=== PATIENT | male | born 1935 | race Caucasian/White ===

== ENCOUNTER → 2019-02-27 13:34 | Outpatient (CLI) | payer MEDICARE, SELFPAY ==
--- NOTE | 2019-02-09 02:34 | HP_ITS ---
Intake Vital Signs 02/09/19 Body Mass Index (BMI) 28.6 02/09/19 Height 6 ft 1 in 02/09/19 Weight: 219 lb 02/09/19 Body Mass Index (BMI) 28.8 02/09/19 Blood Pressure 130/76 H 02/09/19 Blood Pressure Location Rt brachial 02/09/19 Blood Pressure Position Sitting 02/09/19 Respiratory Rate 18 02/09/19 Pulse Rate 73 02/09/19 Pulse Source Monitor 02/09/19 Temperature 97.9 F 02/09/19 Temperature Source Oral 02/09/19 Pulse Ox 96 02/09/19 Oxygen Delivery Method room air Intake Visit Reasons: Gallbladder/EJECTION FRACT. LESS THEN 35% Chief Complaint: abdominal pain Radiator Core Tester Required: No Is patient in pain?: No Allergies chlorpheniramine [From Scot-Tussin DM] Allergy (Mild, Verified 02/09/19 13:41) GI upset dextromethorphan [From Scot-Tussin DM] Allergy (Mild, Verified 02/09/19 13:41) GI upset finasteride [From Proscar] Adverse Reaction (Mild, Verified 02/09/19 13:41) impotence aspirin Adverse Reaction (Verified 03/13/13 14:00) Other tamsulosin HCl [From Flomax] Adverse Reaction (Verified 03/13/13 14:00) Other Medications Alfuzosin HCl [Uroxatral] 10 mg PO BID 03/13/13 [History Confirmed 02/09/19] Omeprazole [Prilosec] 20 mg PO DAILY 03/13/13 [History Confirmed 02/09/19] Polyethylene Glycol 3350 [Miralax] 17 gm PO DAILY 03/13/13 [History Confirmed 02/09/19] Potassium Chloride 8 meq PO DAILY 03/13/13 [History Confirmed 02/09/19] Selenium Sulfide/Menthol [Selsun Blue 1% Shampoo] 118 ml TP PRN PRN 03/13/13 [History Confirmed 02/09/19] Triamterene 37.5MG/Hctz 25MG [Dyazide (G)] 1 cap PO DAILY 03/13/13 [History Confirmed 02/09/19] atorvastatin 10 mg tablet 20 mg PO DAILY tab 02/09/19 [History Confirmed 02/09/19] brimonidine 0.15 % eye drops 1 drp OPHTHALMIC BID ml 02/09/19 [History Confirmed 02/09/19] fluticasone propionate 50 mcg/actuation nasal spray,suspension 2 spray INTRANASAL DAILY 02/09/19 [History Confirmed 02/09/19] glucosamine sulfate 500 mg capsule 500 mg PO BID 02/09/19 [History Confirmed 02/09/19] latanoprost 0.005 % eye drops 1 drp OPHTHALMIC BID ml 02/09/19 [History Confirmed 02/09/19] magnesium 400 mg (as magnesium oxide) capsule 400 mg PO DAILY 02/09/19 [History Confirmed 02/09/19] meclizine 25 mg chewable tablet 25 mg PO TID PRN 02/09/19 [History Confirmed 02/09/19] netarsudil 0.02 % eye drops 1 drp OPHTHALMIC QPM 02/09/19 [History Confirmed 02/09/19] [facility] Medical History (Updated 02/09/19 @ 14:31 by Wale Chandra MD) Biliary dyskinesia (Acute) Abdominal pain (Acute) BPH (benign prostatic hyperplasia) (Acute) Biliary dyskinesia (Acute) Constipation (Acute) Elevated PSA (Acute) Erectile dysfunction (Acute) GERD (gastroesophageal reflux disease) (Acute) Glaucoma (Acute) History of cataract (Acute) Hyperlipidemia (Acute) Thyroid nodule (Acute) history basal cell, squamous cell of the skin (Acute) Hypertension (Chronic) Surgical History (Updated 02/09/19 @ 13:37 by María Olivo) History of bilateral cataract extraction (Acute) history of basal cell and squamous cell removals (Acute) history shunt placement left eye (Acute) Family History (Updated 02/09/19 @ 13:38 by María Olivo) Mother Hypertension Thyroid disorder Brother Hypertension Cancer skin cancer Sister Hypertension Cancer skin cancer Social History (Updated 02/09/19 @ 14:34 by Wale Chandra MD) Smoking Status: Never smoker alcohol intake: current alcohol intake frequency: a few times a month substance use type: does not use HPI HPI HPI: NONA RAYMOND is a 83 M who presents to the office today for HPI HPI Surgical H&P: Yes HPI: NONA RAYMOND is a 83 M who presents to the office today for intermittent episodes of right upper quadrant pain. The vast majority of these are postprandially. A pastrami sandwich physically caused a bad event. This is been ongoing for about 3 months. He denies fever or chills or sweats. On October 16, 2018 he had a right upper quadrant ultrasound. Biliary system was normal. Common bile duct 3 mm. No gallstones. Possibly some mild gallbladder wall sludge identified. No pericholecystic fluid. More recently on January 29, 2019 a hepatobiliary scan showed prompt filling. Ejection fraction was 31% felt to be abnormal. The patient did not have discomfort during the exam however several hours later he felt flulike symptoms and over the next couple days felt poorly. Dr. Fredrick Garcia for an unrelated set of Circumstances on April 28, 2018 performed a upper and lower endoscopy. The esophagus stomach and duodenum are all felt to be normal at that setting. The patient is on chronic omeprazole therapy at 20 mg daily. 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 Random right colonic biopsies showed colonic mucosa with no specific abnormality. That was performed because of a change in bowel habits He denies bright red blood per rectum or melena. The abdominal pain sometimes in the right sometimes right subcostal location left mid abdomen. He feels that most the time it is a postprandial event. No nausea or vomiting. No fever or chills or sweats. No unexpected weight loss The patient is referred for surgical consultation by Dr. Ragland and a written copy of my surgical consult recommendations will return to him ROS General General: No weight change, appetite, fatigue, colon cancer, breast cancer or weakness HEENT HEENT: Yes eye surgery and swollen glands; no difficulty swallowing, eye injury or hoarseness Endo Endocrine: Yes thyroid disease; no diabetes mellitus, thyroid cancer, Hair loss, heat intolerance or cold intolerance Skin Skin: No rash or changing moles Breast Breast: No left breast lump, right breast lump, nipple discharge, breast pain, abnormal mammogram, abnormal US or breast enlargement Musc Musculoskeletal: Yes arthritis; no back problems, rheumatoid arthritis, gout or joint pain Cardio Cardiovascular: Yes high blood pressure; no murmur, pacemaker, heart disease, atrial fibrillation, heart attack, heart stent, palpitations, shortness of breat with exertion or chest pain Psych Psychiatric: No depression, anxiety or hearing voices Resp Respiratory: No shortness of breath, No sleep apnea, No cough, No COPD, No asthma, No emphysema, No wheezing Gastro Gastrointestinal: Yes abdominal pain, No nausea or vomiting, No diarrhea, Yes constipation, No blood in stool, Yes acid reflux, No hemorrhoids, No ulcers, Yes gallbladder problem, No black,tarry stools Mervin Hematologic: No blood thinners, No blood disorders, No bleeding, No anemia, No blood clots Neuro Neurologic: No system reviewed and no additional complaints, except as docu, No as per HPI, No abnormal walking, No abnormal hearing, No abnormal movements, No abnormal speech, No behavioral changes, No burning sensations, No confusion, No seizure-like activity, No unsteadiness, No dizziness, No localized weakness, No frequent falls, No headache(s), No lack of coordination, No loss of vision, No memory loss, No numbness, No other visual disturbances, No radiating pain, No restless legs, No sensory deficit, No fainting, No tingling, No tremor(s), No weakness, No other Exam Const General: cooperative, healthy appearing, comfortable, no acute distress Nutritional Appearance: average body habitus Orientation: alert, awake, oriented x3 HENMT Head: normal to inspection Neck Neck: normal visual inspection Chest Chest palpation & inspection: normal inspection of the chest Breast Palpation: No nipple discharge Resp Effort & Inspection: normal respiratory effort Auscultation: clear to auscultation bilaterally Cardio Rate: regular rate Rhythm: regular rhythm Heart Sounds: no murmurs GI Palpation: soft, no hepatosplenomegaly Auscultation: normal bowel sounds Other: No specific mass no tenderness no guarding Skin General: no rashes or lesions noted Neuro Cognition: normal cognition Extrem General: no calf tenderness bilaterally Psych Affect: normal affect Assessment & Plan Problems 1. Biliary dyskinesia K82.8 Plan 83-year-old gentleman who has postprandial pain mostly in the right midabdomen right upper quadrant but he has diffuse aching pain intermittently in the left mid abdomen as well. He has not had laboratory drawn at the peak of discomfort. He has not had CT imaging. I believe that he may well have biliary dyskinesia or possibly the sludge microsoft windows engineer on the ultrasound really is tiny stones or debris. I have offered him a laparoscopic cholecystectomy with selective cholangiography. He is aware of the technique, benefit, risk of alternatives. However prior to proceeding of that highlighted by these bouts of left mid abdominal pain more than I would think typical of biliary dyskinesia I would like to obtain a abdominal pelvic CT scan. If that is otherwise not remarkable then we will proceed with gallbladder surgical intervention. Obviously if this he demonstrates any acute finding we will address as appropriate. He has had an opportunity to ask and have questions answered. We will schedule and proceed as noted. I very much appreciate the kind opportunity of assisting with surgical care. Cc: Dr. Obie Chandra M.D., F.A.C.S. Orders Orders: Abdomen/Pelvis WITH Contrast Today R10.9 Coding Level of Care Code 58500 Diagnoses Biliary dyskinesia K82.8 02/09/19 1434 <Electronically signed by Wale avitia MD> Date _ Wale Chandra MD
[2019-02-09 13:47] VITALS: BMI 28.6
== END ==
PROVIDERS: PCP Internal Medicine; Visit Provider Surgery
DX: Z00.00 Encounter for general adult medical examination without abnormal findings (principal)

== ENCOUNTER 2020-03-18 12:45 | Outpatient (RCR) | payer MEDICARE, SELFPAY ==
[2019-02-09 13:47] VITALS: BMI 28.6
== END 2020-03-18 23:59 ==
LOC: IMMUN 12:45
PROVIDERS: PCP Internal Medicine; Referring Provider Family Medicine; Visit Provider Family Medicine
DX: Z23 Encounter for immunization (principal)
CPT/HCPCS: 0011A; 0012A; 91301

== ENCOUNTER → 2020-07-29 06:40 | Outpatient (CLI) | payer MEDICARE, SELFPAY ==
[2019-02-09 13:47] VITALS: BMI 28.6
--- NOTE | 2020-07-29 06:44 | CT_ITS ---
STUDY: CT SCAN LOWER EXTREMITY HIP LEFT.[facility] protocol REASON FOR EXAM: Male, 84 years old. UNILATERAL OSTEOARTHRITIS LEFT KNEE RADIATION DOSAGE (If Supplied By Facility): CTDIvol = ( 18.76 ) mGy, DLP = ( 1143.37 ) mGycm. Individualized dose optimization techniques were used for this CT.? TECHNIQUE: Multiple axial tomographic images of the left hip joint, left knee joint and left ankle joint were obtained. Coronal and sagittal reconstruction was obtained as well. COMPARISON: None. FINDINGS: Imaging of the left hip joint demonstrates a moderate amount of joint space narrowing. There is evidence of the acetabular spurs worse along the superior aspect of the acetabulum and posteriorly. There is evidence of a calcification of the labrum. Moderate amount of joint space narrowing involving the medial compartment of the knee joint with some mild degree of degenerative spur formation. Mild degree of patellofemoral arthritis. Moderate degree of joint effusion. Imaging of the ankle was performed. There is evidence of an old avulsion fracture of the medial malleolus. CT/Extremity Lower without Contra IMPRESSION: Moderate degree of osteoarthritis involving the left hip joint with evidence of acetabular spur formation. Moderate degree of joint space narrowing involving the medial compartment of the knee joint and mild degree of osteoarthritis involving the patellofemoral joint. Moderate size joint effusion. Electronically Signed: Adan House MD at 10:58 EDT , Service support ,
== END ==
PROVIDERS: PCP Internal Medicine; Visit Provider Orthopaedic Surgery
DX: M17.12 Unilateral primary osteoarthritis, left knee (principal); M21.162 Varus deformity, not elsewhere classified, left knee
CPT/HCPCS: 73700

== ENCOUNTER 2020-08-15 15:39 | Observation (INO) | payer MEDICARE, SELFPAY ==
[2019-02-09 13:47] VITALS: BMI 28.6
--- NOTE | 2020-08-08 15:47 | EKG12_ITS ---
Test Reason : PRE SURGERY Blood Pressure : / mmHG Vent. Rate : 074 BPM Atrial Rate : 074 BPM P-R Int : 166 ms QRS Dur : 086 ms QT Int : 390 ms P-R-T Axes : 070 042 060 degrees QTc Int : 432 ms Normal sinus rhythm Normal ECG Confirmed by NERY AREVALO, CHARISSE ([id number]), primer expeditor and drier LUAN GALEANA ([id number]) on 08/09/2020 9:00:37 AM Referred By: Jose Zapata Confirmed By:CHARISSE GABRIEL MD
[2020-08-08 17:22] LABS: Hematocrit 41.1 % (40-54); Hemoglobin 13.7 g/dL (13.0-16.5); Mean Corp Hgb Conc 33.3 g/dL (32-36); Mean Corpuscular Hgb 30.2 pg (27.0-32.0); Mean Corpuscular Volume 90.5 fL (80-94); Mean Platelet Vol. 9.9 fl (6.2-12.0); Platelet Count 181 K/mm3 (150-450); RBC Distribution Width CV 12.5 % (11.6-14.6); RBC Distribution Width SD 41.3 fl (35.1-43.9); Red Blood Count 4.54 M/mm3 (4.6-6.2); White Blood Count 4.6 K/mm3 (4.4-11.0)
[2020-08-08 17:37] LABS: Anion Gap 8 (5-15); BUN 18 mg/dL (7-18); BUN/Creat Ratio 23.1 RATIO (10-20); Chloride 105 mmol/L (98-107); Creatinine, Serum 0.78 mg/dL (0.70-1.30); EST Glomerular Filtration Rate 101 mL/min (>60); Est Glom Filt Rate - Afr Amer 123 mL/min (>60); Glucose 76 mg/dL (74-106); Potassium 3.4 mmol/L (3.5-5.1); Sodium Level 142 mmol/L (136-145)
[2020-08-08 17:46] LABS: Hemoglobin A1c 5.3 % (3.8-5.6)
[2020-08-08 17:50] LABS: Thyroid Stim Hormone (TSH) 0.72 uIU/mL (0.358-3.74)
[2020-08-15] VITALS (13 sets, daily range): BP systolic 118–154; BP diastolic 54–84; PULSE 48–68; RESP 16–20; TEMP 36.2–36.9; O2SAT 93–100; BMI 27.9; BMI 29.1
[2020-08-15] MEDS: Gabapentin 600 MG Tablet PO (06:15)
[2020-08-15] MEDS: Acetaminophen 500 MG Tablet 1000 MG PO ×2 (06:16→21:24)
[2020-08-15] MEDS: Insulin Lispro 100 UNIT/ML INSULN.PEN SC (06:16)
[2020-08-15 06:21] LABS: Bedside Glucose 196 mg/dL (70-110)
[2020-08-15] MEDS: Lactated Ringers 1,000 ML 100 ML IV ×2 (06:30→20:06)
[2020-08-15] MEDS: Cefazolin 2 GM in 0.9% Normal Saline 100 ML IV (07:25)
--- NOTE | 2020-08-15 07:25 | RAD_ITS ---
STUDY: X-RAY - LEFT KNEE REASON FOR EXAM: Male, 84 years old. Postop TECHNIQUE: 2 view(s) of the knee. COMPARISON: CT dated 07/29/20 FINDINGS: There is no evidence of fracture or dislocation. The patient is status post left knee arthroplasty. The hardware is intact and alignment is satisfactory. There is a small amount of soft tissue air noted, consistent with the patient''s postoperative state. There are no radiodense foreign bodies. RAD/Knee 1 or 2 Views IMPRESSION: Status post left knee arthroplasty with intact hardware and satisfactory alignment. No fracture or dislocation. Electronically Signed: Isreal Brown MD at 11:19 EDT Tel , Service support ,
--- NOTE | 2020-08-15 07:30 | KNEE_PTH ---
PATIENT: NONA RAYMOND LOC: [facility] U#:[id number] AGE/SX: 84/M ROOM: [facility] RE08/15/[address]: Dr. Yue Og DO : 1935 BED: 1 DIS: 08/16/2020 SPEC #: [id number] RECD: 08/15/20 10:42 STATUS: ALISSA JULIÁN #: [id number] MASHA: 08/15/20 07:[address]: Jose Zapata DEPT: SURGICAL PATHOLOGY RECD BY: Sasha Cruz ENTERED: 08/15/20 12:12 SP TYPE: TOTAL KNEE OTHR DR: Dr. Bertin Ragland MD Tissues: Knee, NOS Procedures: Decalcification bone/plaque Surgery Specimen Level IV HEADER OPERATION: ERAS, total knee replacement robotic arm assist PRE-OP DIAGNOSIS: Primary osteoarthritis TISSUE SUBMITTED: Left knee bone MICROSCOPIC DIAGNOSIS Left knee bone, total knee replacement/resection: Pieces of bone with degenerative osteoarthritic changes. Fibroadipose tissue, fibroconnective tissue and reactive synovial tissue. CLARE:pablo 08/18/2020 MICROSCOPIC DESCRIPTION Slides are reviewed. GROSS DESCRIPTION Received in fixative is one container labeled with the patient's name and designated left knee bone. The specimen consists of multiple fragments of moreno-yellow bone measuring in aggregate 11 x 9 x 4 cm. Also in the specimen container are multiple fragments of yellow-white soft tissue measuring in aggregate 8 x 7 x 3 cm. A number of bony fragments contain articular surfaces consistent with tibial plateau and femoral condyle and displaying prominent osteophyte formation and bone erosion. Vibrating Screen Operator sections are submitted in two cassettes as follows: 1 - soft tissue, 2 - bone after decalcification. / CLARE:pablo 08/15/20 TC:5 [facility]: [id number], [id number]
[2020-08-15] MEDS: Lactated Ringers 1,000 ML 999 ML IV (09:55)
[2020-08-15 10:10] LABS: Bedside Glucose 106 mg/dL (70-110)
[2020-08-15] MEDS: Ondansetron 4 MG/2 ML Vial IV ×2 (12:29→20:10)
[2020-08-15] MEDS: 0.9% Saline Lock 10 ML Syringe IV (12:29)
[2020-08-15] MEDS: Lactated Ringers 1,000 ML 125 ML IV (12:31)
--- NOTE | 2020-08-15 13:41 | OP.PCM_ITS ---
Report of Operation Date of Procedure: 08/15/20 Pre-Operative Diagnosis: OA left knee Post-Operative Diagnosis: same Surgery/Procedure Performed:: Left TKR Description of Surgical Findings:: Report of Operation Date of Procedure: Preoperative Diagnosis: [left ] knee primary osteoarthritis Postoperative Diagnosis: [ left ] knee primary osteoarthritis Operation: Robotic Assisted Knee Total Arthroplasty, [left ] knee Surgeon: Dr Jose Zapata DO Solidworks Drafter: Michael Jara PA-C Anesthesia: spinal Anesthesiologist: Sean Anderson M.D Findings: Stable knee with good patella tracking Specimen(s): Bony cuts Complications: No intraoperative complications Estimated Blood Loss: 20 cc IV Fluids: 1000 cc crystalloid Implants Used: 1. [employer] [place] [employer] size 8 CR press fit femur 2. [employer] [place] [employer] size 7 tibia 3. 40 mm patella 4. 9 mm CS polyethylene Brief History Operative Indications: [ 84 y/o male ] with history of [ left ] knee osteoarthrosis with radiographic findings with loss of joint space, osteophyte formation and subchondral sclerosis. Failed conservative measures as mentioned in the H&P. Discussion of total knee arthroplasty as well as risk and benefits were discussed with the patient including but not limited to blood loss, DVTs, PEs, neurovascular damage, general risk of anesthesia including loss of life, and stiffness or instability were also discussed with the patient. Patient demonstrated understanding and was able to sign informed consent. Procedure: On the date of procedure, patient's [left ] lower extremity was marked in the preoperative area. The patient was then taken back to the operating room where that patient was placed on the table in the supine position. All bony prominences were identified and well-padded. Anesthesia assumed control of the C-spine and airway throughout the remainder of the procedure. A tourniquet was placed on the [left ] upper thigh and the leg was prepped in a sterile fashion. The surgeon then scrubbed at this time. Upon reentering the room, the [ left ] lower extremity was draped in a standard orthopedic fashion. A timeout was then called and everyone agreed upon the side, the site, the procedure to be performed, patient's identity and antibiotics given. Esmarch bandage was used to exsanguinate the extremity and the tourniquet was placed up to 250 mmHg with the knee in flexion. A midline skin incision was made and a sharp dissection was taken down through skin, subcutaneous tissue and fat. The standard medial parapatellar incision was made and the patella was subluxed laterally. An appropriate deep MCL release was done and the fat pad was resected. Our attention was then directed to the patella. The patella was everted and a flat resection was made. The knee was then flexed up and 2 femoral pins were placed inside the incision and 2 tibial pins were placed outside the incision in the medial tibia bicortically. Once this was completed, the 2 checkpoints in the femur and tibia were placed. Knee was then flexed up and the bony landmarks were registered. Once the was completed, the knee taken through range of motion and manually stressed allowing us to plan for an appropriate tibial cut. The robotic arm was brought into the field sterilely and checkpoint and saw were registered. Based on the patient's deformity, the tibial cut was made in [1 degree varus ]. At this time, the tensioner was then placed in the joint and ligament tension was checked at 90 degrees and full extension. Based on the patient's ligamentous tension, appropriate adjustments were made to the operative plan and ligament releases were done. Once we were happy with our operative plan with balanced flexion and extension gaps, our attention was directed to the femur. The robot was brought into the field sterilely and registered. Posterior condylar cuts, anterior chamfer cuts and anterior cuts were appropriately made for a [ size 8 ] femur. When these were completed, the saws were switched out in the distal femoral and posterior chamfer cuts were made. Protecting the soft tissue throughout this time. A [ size 7 ] base plate was selected. The knee was flexed to 90 degrees and soft tissues and posterior osteophytes were removed from the joint. 40 cc of the periarticular injection was injected into the posterior medial corner of the joint. The appropriate trials were then placed on the femur and tibia. A trial polyethylene was trialed to ensure proper balancing and stability of the knee. The appropriate tibial internal rotation was then marked with a bovie. Our attention was then directed to the patella. The lug holes were drilled and the patella trial was placed. Patellar tracking was checked and deemed appropriate. Once we were happy, lug holes were drilled for the femur and trial components were removed. The tibia was subluxed and pinned into place and the keel was punched and drilled appropriately. Final components were verified and opened. The wound was copiously irrigated with normal saline. The components were impacted into place with the tibia, femur and finally the patella. The trial poly component was placed and the knee was placed in full extension. The tracking, alignment and balance were verified and a [ 9 mm ] polyethylene component was placed. Once the final components were placed an Irrisept lavage was performed and the wound was copiously irrigated with normal saline solution and the periarticular injection was given. the wound was closed in a layer-herman fashion using #1 vicryl interrupted sutures for the arthrotomy, 2-0 interrupted vicryl suture for the subcuticular layer and jaclyn for final skin closure. A sterile compressive dressing was then placed. The patient was then awakened from anesthesia, transferred to the [place] and transferred to the PACU for recovery. My physician access services assistant was a vital part of this case. He was important in appropriate retraction during the case, and protection of soft tissues during bony cuts. His intimate knowledge of the case and my steps aided in safe and expedient completion of the procedure as well as appropriate position of the leg during the case. He was also vital in assisting with closure under my direct supervision. Due to the complexity of this case, robotic arm was used to assist in the surgery to improve accuracy and clinical outcomes. Post-op Plan: DVT ppx; Xarelto 10 mg po q day x 14 days, thigh high compression stockings Follow up: in office in 2 weeks for wound check PT: to start POD #0 at hospital, outpatient PT should be arranged. Preoperative antibiotic: Ancef 2 gms IV Jose Zapata DO Surgeon: Jose Zapata electro optics engineer: Michael Jara Type of Anesthesia: Spinal Anesthesiologist: Sean Anderson Specimen's removed: bone Drains: none Estimated Blood Loss (mL): 20 cc Fluids Replaced: 1000 cc crystalloid Admit VTE Documentation VTE Present on Admission: No VTE Mechan Device Prophylaxis: SCD's and Thigh High ELIZ Hose VTE Pharm Prophylaxis ordered?: Yes
[2020-08-15] MEDS: BRIMONIDINE 0.15% 5 ML Bottle 1 DRP RIGHT EYE (14:56)
--- NOTE | 2020-08-15 15:19 | EKG12_ITS ---
Test Reason : CP Blood Pressure : / mmHG Vent. Rate : 051 BPM Atrial Rate : 051 BPM P-R Int : 170 ms QRS Dur : 096 ms QT Int : 498 ms P-R-T Axes : 064 013 064 degrees QTc Int : 458 ms Sinus bradycardia Otherwise normal ECG When compared with ECG of 08-AUG-2020 16:01, No significant change was found Confirmed by NERY AREVALO, CHARISSE ([id number]), clinical editor LUAN GALEANA ([id number]) on 08/18/2020 12:38:29 PM Referred By: Jose Zapata Confirmed By:CHARISSE GABRIEL MD
--- NOTE | 2020-08-15 16:00 | RAD_ITS ---
INDICATION: chest heaviness EXAMINATION/TECHNIQUE: X-RAY - XR Chest 1 View COMPARISON: None. FINDINGS: The lungs are clear. The cardiomediastinal silhouette is unremarkable. No pleural effusion or pneumothorax. Degenerative changes of the thoracic spine. RAD/Chest 1 View (Portable) IMPRESSION: No acute radiographic abnormalities. Electronically Signed: Rajesh Allen MD at 17:19 EDT Tel , Service support ,
--- NOTE | 2020-08-15 16:07 | PCM.PN.HOSP ---
Documented by User: Kyara Beck NP, [employer]URAL [employer]-C 08/15/20 16:13 Subjective Subjective Patient seen and examined. Went left total knee replacement by Dr. Zapata. Reports he had nausea earlier today and following surgery had further nausea with emesis. He also reports epigastric burning. He states he frequently takes Tums at home as well as omeprazole for chronic GERD with history of GI ulcers. States his symptoms feel consistent with reflux and requests Tums. Denies shortness of breath, diaphoresis, pain radiation. Pain located in the epigastric region. EKG without ST-T changes. Objective Data Objective Data Vital Signs: Vital Signs Temp Pulse Resp BP Pulse Ox 97.8 F 53 L 16 143/79 H 97 08/15/20 15:22 08/15/20 15:22 08/15/20 15:22 08/15/20 15:22 08/15/20 15:22 Oxygen Flow Rate (L/min) 6 Oxygen Delivery Method Room Air Weight: 217 lb 13.067 oz Body Mass Index (BMI) 29.1 Intake & Output: Intake and Output for Last 24 Hours 08/13/20 08/14/20 08/15/20 23:59 23:59 23:59 Intake Total 2336 / 2336 Output Total 250 / 250 Balance 2086 / 2086 Lab / Micro Data Result Diagrams: 08/08/20 16:08 08/08/20 16:08 Labs: Laboratory Results - last 24 hr 08/15/20 08/15/20 05:59 10:03 POC Glucose 196 H 106 Micro: Microbiology 08/08/20 16:08 Swab (Method) Nasal Screen MRSA/MSSA - Final Radiography Diagnostic Testing: Radiology Impression Knee X-Ray 08/15/20 07:25 IMPRESSION: Status post left knee arthroplasty with intact hardware and satisfactory alignment. No fracture or dislocation. Electronically Signed: Isreal Brown MD at 11:19 EDT Tel , Service support , Physical Exam Const alert, oriented x3 and no apparent distress Orientation / Consciousness: awake, oriented to person, oriented to place and oriented to time HEENT normocephalic and moist oral mucous membranes Eyes PERRL, EOMs intact bilaterally and conjunctivae normal Neck no lymphadenopathy Resp normal respiratory effort and clear to auscultation bilaterally Cardio regular rate, regular rhythm and no murmurs Peripheral Pulses: pulses 2+ throughout GI normal to inspection, nondistended, normoactive bowel sounds, non-tender and non-distended Extremity normal to inspection Extremity Narrative: Left knee postop dressing intact. Skin no rashes or lesions noted Lesions: no lesions Rashes: no rashes Trauma: no lacerations or abrasions Neuro CN's II-XII intact bilaterally, no focal motor deficits, no sensory deficits noted and deep tendon reflexes 2+ bilaterally Psych mental status grossly normal and affect normal Assessment & Plan Assessment/Plan (1) Epigastric pain: PLAN: 1. Epigastric pain-EKG without ST-T changes. Obtain troponin x1. Chest x-ray completed, image pending. Patient has a history of significant GERD with history of gastric ulcers. Symptoms consistent with reflux. PPI twice daily. As needed Tums. As needed antiemetics. 2. Left knee osteoarthritis status post left total knee replacement- management per ortho. 3. Hypertension-stable, continue home regimen. 4. Hyperlipidemia-continue statin. 5. BPH-on alpha Zosyn. DVT prophylaxis-Per surgery This patient was seen by IBIS Mercado under the supervision of Dr. Barros. Documented by User: Dr. Marques Barros MD 08/15/20 16:40 Objective Data Lab / Micro Data Result Diagrams: 08/08/20 16:08 08/08/20 16:08 Charges/Coding Addendum Addendum: Hospitalist note: I am seeing this patient in conjunction with Kyara Beck. I independently seen and examined the patient. History and physical, laboratory data and imaging studies reviewed and I concur with the above plan. Patient complains of epigastric/lower chest pain. He had nausea earlier after surgery and reported epigastric burning. He takes Tums at home and omeprazole for GERD. He denied shortness of breath, sweating, dizziness or lightheadedness. EKG reviewed, no acute ischemic changes. Patient denied any past history of CAD. Plan: Serial cardiac enzymes, increase Protonix to 40 mg p.o. twice daily, Mylanta as needed, IV antiemetics as needed. Visit Charges Inpatient E&M: 69748 Subs Hosp L2
[2020-08-15] MEDS: Calcium Carbonate 500 MG Tablet 1000 MG PO (16:39)
[2020-08-15] MEDS: Cefazolin 1 GM/50 ML BAG IV ×2 (16:39→23:22)
[2020-08-15] MEDS: Pantoprazole Sodium 40 MG Tablet PO ×2 (16:41→21:24)
[2020-08-15] MEDS: Latanoprost 0.005% 1 Bottle 1 DRP RIGHT EYE (16:48)
[2020-08-15] MEDS: NETARSUDIL MESYLATE 1 DRP OPHTHALMIC (20:06)
[2020-08-15] MEDS: Senna/Docusate Sodium 1 Tablet 2 TABLET PO (21:23)
[2020-08-16 02:00] VITALS: BP 132/68; PULSE 59; RESP 16; TEMP 36.8; O2SAT 95
[2020-08-16] MEDS: oxyCODONE 5 MG Tablet PO ×2 (05:42→11:22)
[2020-08-16] MEDS: Rivaroxaban 10 MG Tablet PO (05:42)
[2020-08-16] MEDS: Acetaminophen 500 MG Tablet 1000 MG PO ×2 (05:42→14:23)
[2020-08-16 06:14] LABS: Hematocrit 37.3 % (40-54); Hemoglobin 12.6 g/dL (13.0-16.5); Mean Corp Hgb Conc 33.8 g/dL (32-36); Mean Corpuscular Hgb 30.7 pg (27.0-32.0); Mean Corpuscular Volume 90.8 fL (80-94); Platelet Count 172 K/mm3 (150-450); RBC Distribution Width CV 12.6 % (11.6-14.6); RBC Distribution Width SD 41.9 fl (35.1-43.9); Red Blood Count 4.11 M/mm3 (4.6-6.2); White Blood Count 10.5 K/mm3 (4.4-11.0)
[2020-08-16 06:39] LABS: Anion Gap 7 (5-15); BUN 10 mg/dL (7-18); BUN/Creat Ratio 11.2 RATIO (10-20); Calcium,Total 8.6 mg/dL (8.5-10.1); Chloride 100 mmol/L (98-107); Creatinine, Serum 0.89 mg/dL (0.70-1.30); EST Glomerular Filtration Rate 87 mL/min (>60); Est Glom Filt Rate - Afr Amer 105 mL/min (>60); Estimated Creatinine Clearance 70.24 ml/min; Glucose 105 mg/dL (74-106); Potassium 3.1 mmol/L (3.5-5.1); Sodium Level 138 mmol/L (136-145)
--- NOTE | 2020-08-16 07:30 | PCM.PN.ORT ---
Objective Data Objective Data Patient sitting at bedside. Patient states his nausea vomiting has improved. He states that he is having some neck stiffness, however he does have chronic neck problems. Patient denies any chest pain, shortness of breath, calf pain, nausea vomiting. Patient feels he is ready for discharge home today. Vital Signs: Vital Signs Temp Pulse Resp BP Pulse Ox 98.2 F 59 L 16 132/68 H 95 08/16/20 02:00 08/16/20 02:00 08/16/20 02:00 08/16/20 02:00 08/16/20 02:00 Oxygen Flow Rate (L/min) 6 Oxygen Delivery Method Room Air Weight: 98.8 kg Body Mass Index (BMI) 29.1 Intake & Output: Intake and Output for Last 24 Hours 08/14/20 08/15/20 08/16/20 23:59 23:59 23:59 Intake Total 3436 / 3436 963.33 / 963.33 Output Total 250 / 1675 1725 / 1725 Balance 3186 / 1761 -761.67 / -761.67 Lab / Micro Data Result Diagrams: 08/16/20 05:48 08/16/20 05:48 Labs: Laboratory Results - last 24 hr 08/15/20 08/15/20 08/15/20 10:03 15:21 18:06 WBC RBC Hgb Hct MCV MCH MCHC RDW Std Deviation RDW Coeff of Gene Plt Count MPV Sodium Potassium Chloride Carbon Dioxide Anion Gap BUN Creatinine Estim Creat Clear Calc Est GFR (MDRD) Af Amer Est GFR (MDRD) Non-Af BUN/Creatinine Ratio Glucose Calcium Troponin I < 0.015 < 0.015 POC Glucose 106 08/15/20 08/16/20 08/16/20 20:54 05:48 05:48 WBC 10.5 RBC 4.11 L Hgb 12.6 L Hct 37.3 L MCV 90.8 MCH 30.7 MCHC 33.8 RDW Std Deviation 41.9 RDW Coeff of Gene 12.6 Plt Count 172 MPV 10.0 Sodium 138 Potassium 3.1 L Chloride 100 Carbon Dioxide 31.0 Anion Gap 7 BUN 10 Creatinine 0.89 Estim Creat Clear Calc 70.24 Est GFR (MDRD) Af Amer 105 Est GFR (MDRD) Non-Af 87 BUN/Creatinine Ratio 11.2 Glucose 105 Calcium 8.6 Troponin I < 0.015 POC Glucose Micro: Microbiology 08/08/20 16:08 Swab (Method) Nasal Screen MRSA/MSSA - Final Radiography Diagnostic Testing: Radiology Impression Knee X-Ray 08/15/20 07:25 IMPRESSION: Status post left knee arthroplasty with intact hardware and satisfactory alignment. No fracture or dislocation. Electronically Signed: Isreal Brown MD at 11:19 EDT Tel , Service support , Chest X-Ray 08/15/20 16:00 IMPRESSION: No acute radiographic abnormalities. Electronically Signed: Rajesh Allen MD at 17:19 EDT Tel , Service support , Physical Exam Narrative Patient is alert and oriented. Patient is in no respiratory distress, speaking in full sentences. The dressing is clean dry intact. Vital signs labs reviewed noted in the medical record. Patient has no signs or symptoms of DVT. Const oriented x3 HEENT moist oral mucous membranes Extremity normal capillary refill and no clubbing, cyanosis or edema Assessment & Plan Assessment/Plan (1) Status post total left knee replacement: PLAN: 1. Continue all pain medications as prescribed 2. Restart and continue Eliquis as prescribed preoperatively for postop DVT prophylaxis 3. Encourage incentive spirometry 4. Continue physical therapy outpatient at [facility] 5. Weight-bear as tolerated with walker 6. Can shower on 08/19/2020 7. Follow-up as scheduled, see pink sheet 8. Discharge after p.m. therapy
--- NOTE | 2020-08-16 07:37 | PCM.DC ---
Discharge Instructions Diet Discharge Diet: No restrictions Activity Discharge Activity: May Not Drive, May Shower and Use Walker May shower in (days): 3 May resume sexual activity in: No Restrictions Ice area for (Minutes): 30 (every hour while awake.) Weight Bearing Status: Weight bearing as tolerated Keep extremity elevated above heart level: Operative Extremity Dressing / Incision Call your doctor if your incision/area has: Continuous Slow Oozing, Sudden Increased Bleeding, Increased Pain/ Swelling, Increased Redness and Foul Smelling Discharge Call your doctor if you observe: Fever of 101 or Higher, Coldness, Increased Pain, Numbness or Tingling, Change in Color, Shortness of breath, Calf discomfort and Uncontrolled pain Change Dressing in: leave in place till F/U Remove Dressing in: leave in place till F/U Follow Up Care Please Follow Up With: Michael Jara PA-C When: Please call [phone] to schedule a follow up appointment. Test Results: Test results from this visit will be discussed in further detail at your follow-up appointment, if applicable. Discharge Plan Admission Admit Date/Time: 08/15/20 15:39 Primary Reason for Your Visit: left total knee replacement Attending Provider: Yue Og Primary Care Provider: Bertin Ragland Consulting Providers: Marques Barros Discharge Orders/Prescriptions Prescriptions: New oxycodone 5 mg Tablet 5 - 10 mg PO Q4H PRN MDD 40mg PRN (Reason: Pain Score 4-10) 7 Days Qty: 84 RF: 0 acetaminophen 500 mg Tablet 1,000 mg PO Q8 MDD 3000mg PRN (Reason: pain) 14 Days Qty: 90 RF: 0 Xarelto 10 mg Tablet 10 mg PO DAILY@0600 MDD 10mg 30 Days Qty: 30 RF: 0 Continued brimonidine 0.15 % drops 1 drp RIGHT EYE BID RF: 0 glucosamine sulfate 500 mg capsule 1,200 mg PO DAILY RF: 0 latanoprost 0.005 % drops 1 drp RIGHT EYE BID RF: 0 Rhopressa 0.02 % drops 1 drp RIGHT EYE QPM RF: 0 triamterene-hydrochlorothiazid 1 CAP capsule 1 cap PO DAILY RF: 0 omeprazole 20 MG capsule 20 mg PO DAILY RF: 0 alfuzosin 10 MG tablet 10 mg PO BID RF: 0 selenium sulfide-menthol 118 ML suspension 118 ml TP QODAY RF: 0 atorvastatin 10 mg tablet 20 mg PO DAILY RF: 0 potassium chloride 8 mEq Capsule, Extended Release 8 meq PO DAILY RF: 0 polyethylene glycol 3350 [Miralax] 17 gram Powder In Packet 17 g PO DAILY RF: 0 acetaminophen 500 mg Capsule 1,000 mg PO QHS RF: 0 Referrals / Follow Up: Bertin Ragland MD [Primary Care Provider] -
[2020-08-16 08:00] VITALS: BP 158/83; PULSE 67; RESP 18; TEMP 36.6; O2SAT 97
[2020-08-16] MEDS: 0.9% Saline Lock 10 ML Syringe IV (08:35)
[2020-08-16] MEDS: Ondansetron 4 MG/2 ML Vial IV (08:35)
[2020-08-16] MEDS: proMETHazine 25 MG/ML Syringe 12.5 MG IM (09:56)
[2020-08-16] MEDS: Potassium Chloride Oral Tablet 20 MEQ 60 MEQ PO (11:08)
[2020-08-16] MEDS: Pantoprazole Sodium 40 MG Tablet PO (11:08)
[2020-08-16] MEDS: Triamterene 37.5MG/Hctz 25MG Capsule 1 CAP PO (11:09)
[2020-08-16] MEDS: Atorvastatin Calcium 20 MG Tablet PO (11:10)
--- NOTE | 2020-08-16 11:10 | CASEMGMT ---
TRAVIS EDDY Assessment: Face to Face with pt for initial transition planning/care coordination assessment. TRAVIS EDDY introduced self and role at [facility], pt voices understanding and consents to assessment. Pt is A/O x4 and answers all questions appropriately at this time. Pt sitting up in bed with at bedside. Care providers, pharmacy, and demographics verified/updated. Admitting Dx: Left TKR PCP:Obie Specialists: derrick Zapata; Keyonna, ENT; Chris, pod; Yuriy, derm; Mayank for thyroid at [facility]; Alex who collaborates with Rosana at [facility] [place] [facility] Preferred Pharmacy: [facility] [place] Insurance: [employer] [facility] Prescription Benefit: yes [employer] LW/HPOA: Pt has completed both, DPOA is Carmen Chase. LNOK: Carmen Chase, ; Magdi Chase, son who is internal medicine physician per pt report. Living Arrangements: Pt lives with in a two story house with 1 step up from the garage with grab bar. Pt is I in ADL's and denies concerns at home. Transportation: Pt drives self. or neighbor will be transporting pt to outpt therapy. Pt denies concerns with transportation. DME/HHC/SNF: Pt has a transfer bench, hospital bed, handicapped accessible shower upstairs with a rail on one side of the steps to access, FWW and polar care. Pt denies skilled HHC, [facility] does send a nurse out once a year to assess pt. Pt denies SNF stay. Pt states he is having Brendanova Carmonaal PT from [facility] come to his home tomorrow for privately paid therapy. He is set up for outpatient at [facility] tomorrow at 9am. Pt states his has a connective tissue disorder so he cannot depend on her for any physical needs. Provided a list of private duty agencies per his request should he need additional assistance at home. Discussed that pt cannot receive skilled home services through the insurance while receiving outpatient services due to homebound criteria. Pt verbalizes understanding. Pt states no concerns with going home at time of dc. Pt states no further concerns/needs. CM to follow. Advised pt to ask CM if any further question/concerns/needs arise, voices understanding. Pt Goal: Home with oupatient therapy Plan: Home with outpatient therapy, friend and neighbor support.
[2020-08-16] MEDS: BRIMONIDINE 0.15% 5 ML Bottle 1 DRP RIGHT EYE (11:11)
[2020-08-16] MEDS: Latanoprost 0.005% 1 Bottle 1 DRP RIGHT EYE (11:12)
--- NOTE | 2020-08-16 12:31 | PCM.PN.HOSP ---
Subjective Subjective Patient states he is having a little bit of nausea but overall better. Discussed his hypokalemia and replacement today with reinitiation of his home potassium tomorrow. Patient indicates pain is overall well controlled. Objective Data Objective Data Vital Signs: Vital Signs Temp Pulse Resp BP Pulse Ox 97.8 F 67 18 158/83 H 97 08/16/20 08:00 08/16/20 08:00 08/16/20 08:00 08/16/20 08:00 08/16/20 08:00 Oxygen Flow Rate (L/min) 6 Oxygen Delivery Method Room Air Weight: 98.8 kg Body Mass Index (BMI) 29.1 Intake & Output: Intake and Output for Last 24 Hours 08/14/20 08/15/20 08/16/20 23:59 23:59 23:59 Intake Total 3436 / 3436 963.33 / 963.33 Output Total 250 / 1675 1725 / 1725 Balance 3186 / 1761 -761.67 / -761.67 Lab / Micro Data Result Diagrams: 08/16/20 05:48 08/16/20 05:48 Labs: Laboratory Results - last 24 hr 08/15/20 08/15/20 08/15/20 15:21 18:06 20:54 WBC RBC Hgb Hct MCV MCH MCHC RDW Std Deviation RDW Coeff of Gene Plt Count MPV Sodium Potassium Chloride Carbon Dioxide Anion Gap BUN Creatinine Estim Creat Clear Calc Est GFR (MDRD) Af Amer Est GFR (MDRD) Non-Af BUN/Creatinine Ratio Glucose Calcium Troponin I < 0.015 < 0.015 < 0.015 08/16/20 08/16/20 05:48 05:48 WBC 10.5 RBC 4.11 L Hgb 12.6 L Hct 37.3 L MCV 90.8 MCH 30.7 MCHC 33.8 RDW Std Deviation 41.9 RDW Coeff of Gene 12.6 Plt Count 172 MPV 10.0 Sodium 138 Potassium 3.1 L Chloride 100 Carbon Dioxide 31.0 Anion Gap 7 BUN 10 Creatinine 0.89 Estim Creat Clear Calc 70.24 Est GFR (MDRD) Af Amer 105 Est GFR (MDRD) Non-Af 87 BUN/Creatinine Ratio 11.2 Glucose 105 Calcium 8.6 Troponin I Micro: Microbiology 08/08/20 16:08 Swab (Method) Nasal Screen MRSA/MSSA - Final Radiography Diagnostic Testing: Radiology Impression Chest X-Ray 08/15/20 16:00 IMPRESSION: No acute radiographic abnormalities. Electronically Signed: Rajesh Allen MD at 17:19 EDT Tel , Service support , Physical Exam Const alert, oriented x3 and no apparent distress Constitutional Narrative: Older white male sitting up in bed, watching television, feet elevated Exam Limitations: no limitations Resp normal respiratory effort, no retractions, no use of accessory muscles and clear to auscultation bilaterally Cardio regular rate, regular rhythm, S1 normal heart sound, S2 normal heart sound, no murmurs, no rub, no gallops, no clicks and no JVD GI normal to inspection, nondistended, normoactive bowel sounds, soft to palpation, non-tender and non-distended Extremity normal to inspection, full ROM and no clubbing, cyanosis or edema Peripheral Pulses: Yes pulses 2+ throughout Skin no rashes or lesions noted, no wounds, skin turgor normal, no jaundice, no petechiae and no mottling Neuro oriented x3 Sensorium / Orientation: awake and alert Assessment & Plan Assessment/Plan (1) Status post total left knee replacement: (2) Epigastric pain: (3) Hypokalemia: PLAN: Severe left knee OA-postop day #1 left TKA -Pain medication per orthopedic surgery -Continue home Eliquis -Outpatient physical therapy at discharge -Weightbearing as tolerated -Okay for shower 08/19/2020 -Plan per primary is discharge after afternoon therapy session -Follow-up with Dr. Zapata as directed -Okay to discharge from medical standpoint Hypokalemia -60 mEq p.o. potassium given -Patient is to restart home potassium tomorrow Epigastric pain -Cardiac enzymes negative x3 -Continue increase Protonix dose 40 mg p.o. twice daily -Nausea much improved today Hyperlipidemia -Continue statin Hypertension -Continue home regimen BPH -Continue alpha-joshua DVT prophylaxis -Eliquis per orthopedics Charges/Coding Visit Charges Inpatient E&M: 45607 Subs Hosp L2
[2020-08-16 14:00] VITALS: BP 121/66; PULSE 84; RESP 18; TEMP 36.4; O2SAT 96
== END 2020-08-16 14:50 ==
LOC: SDC 15:49 → MS3 15:49
PROVIDERS: Anesthesiology; Nurse Practitioner Family; Admitting Provider Orthopaedic Surgery; PCP Internal Medicine; Referring Provider Orthopaedic Surgery; Visit Provider Internal Medicine
PROC: 0SRD0JZ Replacement of Left Knee Joint with Synthetic Substitute, Open Approach (ICD-10-PCS; CPT 27447; principal; 2020-08-15 07:00)
DX: M17.12 Unilateral primary osteoarthritis, left knee (principal); K21.9 Gastro-esophageal reflux disease without esophagitis; N40.0 Benign prostatic hyperplasia without lower urinary tract symptoms; E78.5 Hyperlipidemia, unspecified; I10 Essential (primary) hypertension; E87.6 Hypokalemia; Z79.899 Other long term (current) drug therapy
CPT/HCPCS: 01402; 27447; 64447; S2900; 36415; 71045; 73560; 80048; 82962; 83036; 83735; 84443; 84484; 85027; 87081; 88305; 88311; 93005; 96361; 96365; 96366; 96372; 96375; 96376; 97110; 97116; 97162; 97166; 97530; 97535; 99218; 99251; C1776; J7120; A4216; G0378; G0379; G0463; J2405

== ENCOUNTER 2020-08-19 08:50 | Observation (INO) | payer MEDICARE, SELFPAY ==
[2020-08-15 11:38] VITALS: BMI 29.1
[2020-08-19 08:55] VITALS: BP 150/77; PULSE 89; RESP 17; TEMP 37.1; O2SAT 95; BMI 30.8
[2020-08-19 08:57] VITALS: BP 150/77; PULSE 89; RESP 17; TEMP 37.1; O2SAT 95
--- NOTE | 2020-08-19 09:03 | EKG12_ITS ---
Test Reason : NAUSEA Blood Pressure : / mmHG Vent. Rate : 082 BPM Atrial Rate : 082 BPM P-R Int : 152 ms QRS Dur : 098 ms QT Int : 378 ms P-R-T Axes : 055 -02 050 degrees QTc Int : 441 ms Normal sinus rhythm Possible Left atrial enlargement Poor R wave progression Confirmed by MARSHALL AREVALO, GINA ([id number]), scientific publications editor LUAN GALEANA ([id number]) on 08/23/2020 6:59:30 AM Referred By: [facility] Confirmed By:GINA OLIVARES MD
--- NOTE | 2020-08-19 09:06 | EDS_ITS ---
HPI History of Present Illness Chief Complaint: Nausea/Vomiting Informant: patient Narrative Narrative: Patient is an 84-year-old male presenting with nausea, vomiting and generalized weakness. Patient had left total knee replacement performed by Dr. Zapata on 08/15/2020, 4 days ago. He was discharged home from the hospital the following day. His postoperative course was complicated by hypokalemia, nausea and vomiting as well as epigastric pain. Patient states he was discharged home and since that he has been very weak. He is having hard time get around his house. He has not been able to make it to the bathroom and is having a hard time caring for himself. He continues to have nausea and vomiting. Patient stopped taking his oxycodone because he also felt that was bothering his stomach. He states his postoperative pain is doing well with just Tylenol. He denies associated numbness or tingling. Denies any chest pain, shortness of breath or difficulty breathing. No other complaints at this time. Patient is concerned that he needs to be admitted for rehab as he is too weak to be at home and his is too weak to care for him. [facility] Medical History Abdominal pain Alcohol use Anemia Arthritis Back pain Biliary dyskinesia Biliary dyskinesia BPH (benign prostatic hyperplasia) Cancer Constipation Difficulty swallowing Elevated PSA Erectile dysfunction Gastric reflux GERD (gastroesophageal reflux disease) Glaucoma history basal cell, squamous cell of the skin History of edema History of GI bleed History of pain when walking History of stress test History of ulceration Hyperlipidemia Hypertension Non-smoker Prostate disease Restless legs Thyroid disease Thyroid nodule Wears glasses Home Medications alfuzosin 10 mg PO BID 03/13/13 [History Last Taken Unknown] omeprazole 20 mg PO DAILY 03/13/13 [History Last Taken Unknown] selenium sulfide-menthol 118 ml TP QODAY 03/13/13 [History Last Taken Unknown] triamterene-hydrochlorothiazid 1 cap PO DAILY 03/13/13 [History Last Taken Unknown] atorvastatin 10 mg tablet 20 mg PO DAILY tab 02/09/19 [History Last Taken Unknown] brimonidine 0.15 % eye drops 1 drp RIGHT EYE BID ml 02/09/19 [History Last Taken Unknown] glucosamine sulfate 500 mg capsule 1,200 mg PO DAILY 02/09/19 [History Last Taken Unknown] latanoprost 0.005 % eye drops 1 drp RIGHT EYE BID ml 02/09/19 [History Last Taken Unknown] netarsudil 0.02 % eye drops 1 drp RIGHT EYE QPM 02/09/19 [History Last Taken Unknown] acetaminophen 1,000 mg PO QHS 08/01/20 [History Last Taken Unknown] polyethylene glycol 3350 [Miralax] 17 g PO DAILY 08/01/20 [History Last Taken Unknown] potassium chloride 8 meq PO DAILY 08/01/20 [History Last Taken Unknown] acetaminophen 1,000 mg PO Q8 PRN 14 Days #90 tab NS MDD 3000mg 08/16/20 [Rx Last Taken Unknown] oxycodone 5 - 10 mg PO Q4H PRN PRN 7 Days #84 tab NS MDD 40mg 08/16/20 [Rx Last Taken Unknown] rivaroxaban [Xarelto] 10 mg PO DAILY@0600 30 Days #30 tab MDD 10mg 08/16/20 [Rx Last Taken Unknown] Allergy/AdvReac Type Severity Reaction Status Date / Time chlorpheniramine Allergy Mild GI upset Verified 08/15/20 05:38 [facility] dextromethorphan Allergy Mild GI upset Verified 08/15/20 05:38 [From [facility]] doxycycline Allergy PT UNSURE Verified 08/15/20 05:38 OF REACTION finasteride [From Proscar] AdvReac Mild impotence Verified 08/15/20 05:38 aspirin AdvReac Other Verified 08/15/20 05:38 tamsulosin HCl [From Flomax] AdvReac Other Verified 08/15/20 05:38 Family History Mother Hypertension Thyroid disorder Brother Hypertension Cancer skin cancer Sister Hypertension Cancer skin cancer Surgical History history of basal cell and squamous cell removals History of bilateral cataract extraction History of esophagogastroduodenoscopy (EGD) 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 Hx of colonoscopy Social History Smoking Status: Never smoker alcohol intake: current alcohol intake frequency: a few times a month substance use type: does not use ROS ROS ED Constitutional Constitutional ED: Reports other Details: Generalized weakness ; Denies chills, fever(s) or malaise Eyes Eyes: Denies blurry vision or loss of vision ENT ENT ED: Denies rhinorrhea or sore throat Cardiovascular Cardiovascular: Denies chest pain or dizziness Respiratory/Chest Respiratory/Chest: Denies cough or dyspnea Gastrointestinal Gastrointestinal: Reports nausea and vomiting; Denies abdominal pain or diarrhea Genitourinary Genitourinary ED: Denies dysuria or hematuria Musculoskeletal Musculoskeletal: Denies arthralgias or myalgias Integumentary Denies rash or wounds Neurologic Neurologic: Denies focal weakness or headache(s) Psychiatric Psychiatric: Denies anxiety or behavioral changes EXAM Physical Exam Const Vital Signs: 08/19/20 08:55 08/19/20 08:57 Temperature 98.7 F 98.7 F Temperature Source Oral Oral Pulse Rate 89 89 Respiratory Rate 17 17 Blood Pressure 150/77 H 150/77 H Blood Pressure Mean 101 101 Pulse Ox 95 95 Oxygen Delivery Method Room Air Room Air Positive well nourished, well developed and no apparent distress General Appearance ED: well developed HEENT Reports normocephalic and moist mucous membranes atraumatic Nose: no nasal discharge General Ear: hearing grossly impaired External Ear: external ears normal Eyes PERRL and EOMs intact bilaterally Neck full ROM, supple, no meningeal signs and no JVD Chest Wall inspection of chest normal Resp normal respiratory effort, normal air movement and clear to auscultation bilaterally Cardio regular rate and regular rhythm GI normal to inspection, nondistended, normoactive bowel sounds Extremity normal to inspection and full ROM Extremity Narrative: Asymmetric swelling of the left lower extremity consistent with his postoperative status. Neuro oriented x3, CN's II-XII intact bilaterally and no focal motor deficits Sensorium / Orientation: alert Psych mental status grossly normal and thought process normal Skin no rashes or lesions noted and no wounds Skin Narrative: Midline surgical incision over left knee. Ecchymosis around the left knee. Dressing in place with no active drainage. MDM MDM MDM Narrative Medical decision making narrative: Patient is evaluated for generalized weakness postoperatively. He had a left total knee done earlier this week and now does not feel safe at home. He would like to be evaluated for rehab. Patient is hemodynamically stable. He does have anemia that is acute however I think this is a postoperative anemia from expected blood loss. He again is hypokalemic with potassium of 3.1. He is given oral replacement ER. He is admitted for further evaluation for rehab placement. Lab Data Labs: Laboratory Results - last 24 hr 08/19/20 08/19/20 08:36 08:36 WBC 7.2 RBC 3.16 L Hgb 9.5 L Hct 28.2 L MCV 89.2 MCH 30.1 MCHC 33.7 RDW Std Deviation 40.5 RDW Coeff of Gene 12.5 Plt Count 171 MPV 10.4 Immature Gran % (Auto) 0.600 Neut % (Auto) 84.1 H Lymph % (Auto) 5.6 L [place] % (Auto) 9.5 Eos % (Auto) 0.1 Baso % (Auto) 0.1 Absolute Neuts (auto) 6.0 Absolute Lymphs (auto) 0.40 L Nucleated RBC % 0 Differential Comment COMMENT Sodium 134 L Potassium 3.1 L Chloride 96 L Carbon Dioxide 28.0 Anion Gap 10 BUN 12 Creatinine 0.64 L Estim Creat Clear Calc 64.36 Est GFR (MDRD) Af Amer 153 Est GFR (MDRD) Non-Af 127 BUN/Creatinine Ratio 18.7 Glucose 118 H Calcium 8.5 Total Bilirubin 1.20 H Direct Bilirubin 0.39 H AST 27 ALT 24 Alkaline Phosphatase 65 Troponin I High Sens 13.3 Total Protein 6.3 L Albumin 2.8 L Globulin 3.5 Lipase 69 L Radiography Chest X-Ray - ED: 1 View, Read by ED Physician and No Acute Disease Rhythm Strip Rhythm Strip: Sinus Rhythm Rate: 82 Ectopy: None EKG Initial EKG: Attestation: I personally reviewed and interpreted this EKG as follows: Interpretation: Sinus Rhythm Comments: Normal sinus rhythm at a rate of 82 Normal axis Normal intervals Normal ST segments Compared to prior EKG 08/15/2020 patient is no longer bradycardic but has no other acute changes Discharge Plan Dx/Rx/DC Orders Clinical Impression: Hypokalemia, Status post total left knee replacement, Debility Disposition Disposition: Acute Care [facility]
[2020-08-19 09:21] LABS: Basophil# 0.01 X10^3/uL; Basophil% 0.1 % (0-1); Eosinophil# 0.01 X10^3/uL; Eosinophils% 0.1 % (0-5); Hematocrit 28.2 % (40-54); Hemoglobin 9.5 g/dL (13.0-16.5); Lymphocyte % 5.6 % (19-41); Mean Corp Hgb Conc 33.7 g/dL (32-36); Mean Corpuscular Hgb 30.1 pg (27.0-32.0); Mean Corpuscular Volume 89.2 fL (80-94); Mean Platelet Vol. 10.4 fl (6.2-12.0); Monocyte# 0.68 X10^3/uL; Monocyte% 9.5 % (0-10); NRBC Flagged by Analyzer 0 % (0-5); Neutrophil # 6.01 X10^3/uL (2.7-7.7); Neutrophil % 84.1 % (47-70); POSITIVE DIFFERENTIAL YES; Platelet Count 171 K/mm3 (150-450); RBC Distribution Width CV 12.5 % (11.6-14.6); RBC Distribution Width SD 40.5 fl (35.1-43.9); Red Blood Count 3.16 M/mm3 (4.6-6.2); White Blood Count 7.2 K/mm3 (4.4-11.0)
[2020-08-19 09:22] LABS: Differential Indicated SCAN CRITERIA MET
[2020-08-19] MEDS: Ondansetron 4 MG/2 ML Vial IV (09:32)
[2020-08-19] MEDS: 0.9% Normal Saline 1,000 ML 125 ML IV (09:32)
[2020-08-19 09:39] LABS: AST(SGOT) 27 U/L (15-37); Alanine Aminotransfer ALT/SGPT 24 U/L (16-61); Albumin, Serum 2.8 g/dL (3.2-5.0); Alkaline Phosphatase 65 U/L (45-117); Anion Gap 10 (5-15); BUN 12 mg/dL (7-18); BUN/Creat Ratio 18.7 RATIO (10-20); Bilirubin, Direct 0.39 mg/dL (0.00-0.30); Calcium,Total 8.5 mg/dL (8.5-10.1); Chloride 96 mmol/L (98-107); Creatinine, Serum 0.64 mg/dL (0.70-1.30); EST Glomerular Filtration Rate 127 mL/min (>60); Est Glom Filt Rate - Afr Amer 153 mL/min (>60); Estimated Creatinine Clearance 64.36 ml/min; Globulin 3.5 g/dL (2.2-4.2); Glucose 118 mg/dL (74-106); Lipase 69 U/L (73-393); Potassium 3.1 mmol/L (3.5-5.1); Protein, Total 6.3 g/dL (6.4-8.2); Sodium Level 134 mmol/L (136-145); Troponin-I HS 13.3 pg/mL (3.0-78.5)
--- NOTE | 2020-08-19 09:58 | RAD_ITS ---
STUDY: X-RAY CHEST REASON FOR EXAM: Male, 84 years old. weakness TECHNIQUE: Single AP portable view of the chest. COMPARISON: 08/15/2020 FINDINGS: The lungs are clear and expanded. There is no demonstrated pleural abnormality. Normal size heart. Normal mediastinum and gallo. Normal visualized pulmonary arteries. Normal visualized aortic arch and descending thoracic aorta. Normal visualized thoracic spine. Normal visualized ribs, clavicles, and shoulders. There is no demonstrated abnormality of the visualized soft tissue structures of the upper abdomen. RAD/Chest 1 View (Portable) IMPRESSION: Normal x-ray examination of the chest. Electronically Signed: Olegario Simpson MD at 10:25 EDT Tel , Service support ,
[2020-08-19] MEDS: Potassium Chloride Oral Tablet 20 MEQ 40 MEQ PO (10:40)
[2020-08-19 10:51] VITALS: BP 162/78; PULSE 85; RESP 17; TEMP 36.8; O2SAT 97
[2020-08-19 10:59] LABS: Color, Urine Yellow (Yellow); Glucose, Dipstick Normal (Normal); Ketone-Dipstick 50 mg/dl (Negative); Leukocyte Esterase-Dipstick Negative /ul (Negative); Mucous, Urine 0 SEEN /hpf (<or=2+); Nitrite-Dipstick Negative (Negative); Occult Blood-Urine Negative /ul (Negative); Protein-Dipstick Negative (Negative); Red Blood Cells-Urine 0 SEEN /hpf (0-5); Urine Bilirubin Dipstick Negative (Negative); Urine Clarity Clear (Clear); Urine Urobilinogen Normal (Normal); Urine pH 6.5 (5.0 - 8.0)
[2020-08-19 11:05] LABS: Bacteria RARE /hpf (None Seen); Squamous Epithelial Cells - UA 0-5 SEEN /hpf (0-5); White Blood Cells 0-5 SEEN /hpf (0-5)
[2020-08-19 11:16] VITALS: BMI 29.4
[2020-08-19] MEDS: 0.9% Normal Saline 1,000 ML 100 ML IV ×2 (11:37→22:22)
[2020-08-19 11:45] VITALS: BP 153/62; PULSE 83; RESP 18; TEMP 36.8; O2SAT 96
[2020-08-19] MEDS: Acetaminophen 500 MG Tablet 1000 MG PO ×2 (14:49→20:51)
[2020-08-19 16:48] VITALS: BP 152/92; PULSE 90; RESP 18; TEMP 37.3; O2SAT 98
[2020-08-19] MEDS: BRIMONIDINE 0.15% 5 ML Bottle 1 DRP RIGHT EYE (17:42)
--- NOTE | 2020-08-19 17:50 | HP.PCM.HOS_ITS ---
HPI - General General Date of Admission: 08/19/20 HPI Narrative NONA RAYMOND, is a 84 M who presents from home with nausea, vomiting, weakness. He was discharged on Saturday after completing therapy after his left knee replacement and was doing well. And then with the oxycodone he started getting nauseated and having decreased p.o. intake. He also noticed that he started getting weaker and his has a mixed connective tissue disorder and was not able to take care of him and he presented to the hospital for possible placement secondary to inability to complete ADLs. On arrival he was hypokalemic which was replaced in the ER and his hemoglobin was slightly low secondary to his surgery. He was started on some IV fluids and given a general diet. [facility] Medical History Abdominal pain Alcohol use Anemia Arthritis Back pain Biliary dyskinesia Biliary dyskinesia BPH (benign prostatic hyperplasia) Cancer Constipation Difficulty swallowing Elevated PSA Erectile dysfunction Gastric reflux GERD (gastroesophageal reflux disease) Glaucoma history basal cell, squamous cell of the skin History of edema History of GI bleed History of pain when walking History of stress test History of ulceration Hyperlipidemia Hypertension Non-smoker Prostate disease Restless legs Thyroid disease Thyroid nodule Wears glasses Home Medications alfuzosin 10 mg PO BID 03/13/13 [History Last Taken Unknown] omeprazole 20 mg PO DAILY 03/13/13 [History Last Taken Unknown] selenium sulfide-menthol 118 ml TP QODAY 03/13/13 [History Last Taken Unknown] triamterene-hydrochlorothiazid 1 cap PO DAILY 03/13/13 [History Last Taken Unknown] atorvastatin 10 mg tablet 20 mg PO DAILY tab 02/09/19 [History Last Taken Unknown] brimonidine 0.15 % eye drops 1 drp RIGHT EYE BID ml 02/09/19 [History Last Taken Unknown] glucosamine sulfate 500 mg capsule 1,200 mg PO DAILY 02/09/19 [History Last Taken Unknown] latanoprost 0.005 % eye drops 1 drp RIGHT EYE BID ml 02/09/19 [History Last Taken Unknown] netarsudil 0.02 % eye drops 1 drp RIGHT EYE QPM 02/09/19 [History Last Taken Unknown] acetaminophen 1,000 mg PO QHS 08/01/20 [History Last Taken Unknown] polyethylene glycol 3350 [Miralax] 17 g PO DAILY 08/01/20 [History Last Taken Unknown] potassium chloride 8 meq PO DAILY 08/01/20 [History Last Taken Unknown] acetaminophen 1,000 mg PO Q8 PRN 14 Days #90 tab NS MDD 3000mg 08/16/20 [Rx Last Taken Unknown] oxycodone 5 - 10 mg PO Q4H PRN PRN 7 Days #84 tab NS MDD 40mg 08/16/20 [Rx Last Taken Unknown] rivaroxaban [Xarelto] 10 mg PO DAILY@0600 30 Days #30 tab MDD 10mg 08/16/20 [Rx Last Taken Unknown] Allergy/AdvReac Type Severity Reaction Status Date / Time chlorpheniramine Allergy Mild GI upset Verified 08/15/20 05:38 [facility]] dextromethorphan Allergy Mild GI upset Verified 08/15/20 05:38 [From [facility] DM] doxycycline Allergy PT UNSURE Verified 08/15/20 05:38 OF REACTION finasteride [From Proscar] AdvReac Mild impotence Verified 08/15/20 05:38 aspirin AdvReac Other Verified 08/15/20 05:38 tamsulosin HCl [From Flomax] AdvReac Other Verified 08/15/20 05:38 Family History Mother Hypertension Thyroid disorder Brother Hypertension Cancer skin cancer Sister Hypertension Cancer skin cancer Surgical History history of basal cell and squamous cell removals History of bilateral cataract extraction History of esophagogastroduodenoscopy (EGD) 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 Hx of colonoscopy Social History Smoking Status: Never smoker alcohol intake: current alcohol intake frequency: a few times a month substance use type: does not use ROS Constitutional Constitutional: Reports weakness; Denies chills, fatigue, fever(s) or malaise Eyes Eyes: Denies blurry vision ENT HEENT: Denies headache(s) or nasal discharge Cardiovascular Cardiovascular: Denies chest pain, dyspnea on exertion or syncope Respiratory/Chest Respiratory/Chest: Denies cough, shortness of breath at rest or shortness of breath with exertion Gastrointestinal Gastrointestinal: Reports nausea and vomiting; Denies constipation or diarrhea Genitourinary Genitourinary: Denies dysuria Neurologic Neurologic: Denies focal weakness, numbness or tremor(s) Psychiatric Psychiatric: Denies anxiety or depression Vital Signs Vital Signs Vital Signs: 08/19/20 08:55 08/19/20 08:57 08/19/20 10:51 Temperature 98.7 F 98.7 F 98.2 F Temperature Source Oral Oral Oral Pulse Rate 89 89 85 Respiratory Rate 17 17 17 Respiratory Effort Respiratory Depth Respiratory Pattern Blood Pressure 150/77 H 150/77 H 162/78 H Blood Pressure Mean 101 101 106 Blood Pressure Source Blood Pressure Position Blood Pressure Location Pulse Ox 95 95 97 Oxygen Delivery Method Room Air Room Air Room Air 08/19/20 11:16 08/19/20 11:45 08/19/20 16:48 Temperature 98.3 F 99.1 F Temperature Source Oral Oral Pulse Rate 83 90 Respiratory Rate 18 18 Respiratory Effort Normal Non-Labored Respiratory Depth Normal Respiratory Pattern Normal Blood Pressure 153/62 H 152/92 H Blood Pressure Mean 92 112 Blood Pressure Source Monitor Blood Pressure Position Semi-Fowlers Blood Pressure Location Left Arm Pulse Ox 96 98 Oxygen Delivery Method Room Air Room Air Room Air Weight Weight: 220 lb Body Mass Index (BMI) 29.4 Physical Exam Const alert, oriented x3 and no apparent distress General Appearance: cooperative HEENT normocephalic Mouth: dry mucous membranes Eyes PERRL, EOMs intact bilaterally and conjunctivae normal Neck supple and no JVD Resp normal respiratory effort, no retractions, no use of accessory muscles and clear to auscultation bilaterally Auscultation: Negative for crackles, rales, rhonchi or wheezes Cardio regular rate, regular rhythm, S1 normal heart sound, S2 normal heart sound and no murmurs GI soft to palpation, non-tender and non-distended; Negative for hepatosplenomegaly Extremity no clubbing, cyanosis or edema Skin no rashes or lesions noted Skin Narrative: Incision intact over the left knee, dressing with minor bleedthrough Neuro no focal motor deficits and no sensory deficits noted Psych affect normal Appearance: appropriate Results Lab / Micro Data Result Diagrams: 08/19/20 08:36 08/19/20 08:36 Labs: Laboratory Results - last 24 hr 08/19/20 08/19/20 08/19/20 08:36 08:36 10:45 WBC 7.2 RBC 3.16 L Hgb 9.5 L Hct 28.2 L MCV 89.2 MCH 30.1 MCHC 33.7 RDW Std Deviation 40.5 RDW Coeff of Gene 12.5 Plt Count 171 MPV 10.4 Immature Gran % (Auto) 0.600 Neut % (Auto) 84.1 H Lymph % (Auto) 5.6 L [place] % (Auto) 9.5 Eos % (Auto) 0.1 Baso % (Auto) 0.1 Absolute Neuts (auto) 6.0 Absolute Lymphs (auto) 0.40 L Nucleated RBC % 0 Differential Comment COMMENT Sodium 134 L Potassium 3.1 L Chloride 96 L Carbon Dioxide 28.0 Anion Gap 10 BUN 12 Creatinine 0.64 L Estim Creat Clear Calc 64.36 Est GFR (MDRD) Af Amer 153 Est GFR (MDRD) Non-Af 127 BUN/Creatinine Ratio 18.7 Glucose 118 H Calcium 8.5 Total Bilirubin 1.20 H Direct Bilirubin 0.39 H AST 27 ALT 24 Alkaline Phosphatase 65 Troponin I High Sens 13.3 Total Protein 6.3 L Albumin 2.8 L Globulin 3.5 Lipase 69 L Urine Color Yellow Urine Clarity Clear Urine pH 6.5 Ur Specific [place] 1.010 Urine Protein Negative Urine Glucose (UA) Normal Urine Ketones 50 H Urine Occult Blood Negative Urine Nitrite Negative Urine Bilirubin Negative Urine Urobilinogen Normal Ur Leukocyte Esterase Negative Urine RBC 0 SEEN Urine WBC 0-5 SEEN Ur Squamous Epith Cells 0-5 SEEN Urine Bacteria RARE Urine Mucus 0 SEEN Rhythm Strip Rhythm Strip: Sinus Rhythm Rate: 82 Ectopy: None Radiology Impression Chest X-Ray 08/19/20 09:58 IMPRESSION: Normal x-ray examination of the chest. Electronically Signed: Olegario Simpson MD at 10:25 EDT Tel , Service support , Assessment & Plan Assessment/Plan (1) Debility: (2) Narcotic-induced nausea and vomiting: (3) Status post total left knee replacement: PLAN: 1. Narcotic induced nausea and vomiting status post left total knee replacement on 08/15/2020/debility -Continue with IV fluids for tonight and place him on a general diet -Continue with Tylenol only -Pain does appear controlled, PT/OT for evaluation -Case management for possible placement secondary to inability to complete ADLs -Continue with Xarelto for DVT prophylaxis 2. Glaucoma -Stable -Continue his home meds 3. HTN/HLD -SBP is stable -Continue with his home blood pressure medications as well as statin 4. BPH -Stable -Continue with his home medications 5. GERD -Stable -Continue with PPI DVT: Xarelto Charges/Coding Visit Charges OBSV E&M: 31538 Initial observation care L3
[2020-08-19 20:38] VITALS: BP 152/81; PULSE 81; RESP 18; TEMP 37.1; O2SAT 97
[2020-08-19] MEDS: Calcium Carbonate 500 MG Tablet PO (20:41)
[2020-08-19] MEDS: 0.9% Saline Lock 10 ML Syringe IV (22:22)
[2020-08-20 01:35] VITALS: BP 152/85; PULSE 85; RESP 18; TEMP 37.1; O2SAT 97
[2020-08-20 06:07] VITALS: BP 157/79; PULSE 78; RESP 18; TEMP 37; O2SAT 94
[2020-08-20] MEDS: Rivaroxaban 10 MG Tablet PO (06:13)
[2020-08-20] MEDS: Acetaminophen 500 MG Tablet 1000 MG PO ×3 (06:13→22:41)
[2020-08-20 06:20] LABS: Absolute Lymphocyte Count 0.79 X10^3/uL (0.83-4.51); Absolute Neutrophil Count 3.7 X10^3/uL (2.0-7.7); Basophil# 0.02 X10^3/uL; Basophil% 0.4 % (0-1); Eosinophil# 0.05 X10^3/uL; Hematocrit 25.5 % (40-54); Hemoglobin 8.7 g/dL (13.0-16.5); Lymphocyte # 0.79 X10^3/ul (0.83-4.51); Lymphocyte % 15.5 % (19-41); Mean Corp Hgb Conc 34.1 g/dL (32-36); Mean Corpuscular Hgb 30.6 pg (27.0-32.0); Mean Corpuscular Volume 89.8 fL (80-94); Mean Platelet Vol. 9.9 fl (6.2-12.0); Monocyte# 0.55 X10^3/uL; Monocyte% 10.8 % (0-10); NRBC Flagged by Analyzer 0 % (0-5); Neutrophil # 3.69 X10^3/uL (2.7-7.7); Neutrophil % 72.1 % (47-70); Platelet Count 178 K/mm3 (150-450); RBC Distribution Width CV 12.6 % (11.6-14.6); RBC Distribution Width SD 41.5 fl (35.1-43.9); Red Blood Count 2.84 M/mm3 (4.6-6.2); White Blood Count 5.1 K/mm3 (4.4-11.0)
[2020-08-20 06:56] LABS: Anion Gap 6 (5-15); BUN 8 mg/dL (7-18); BUN/Creat Ratio 16.5 RATIO (10-20); Calcium,Total 7.9 mg/dL (8.5-10.1); Chloride 104 mmol/L (98-107); Creatinine, Serum 0.49 mg/dL (0.70-1.30); EST Glomerular Filtration Rate 174 mL/min (>60); Est Glom Filt Rate - Afr Amer 211 mL/min (>60); Estimated Creatinine Clearance 62.51 ml/min; Glucose 91 mg/dL (74-106); Potassium 3.2 mmol/L (3.5-5.1); Sodium Level 140 mmol/L (136-145)
[2020-08-20] MEDS: 0.9% Saline Lock 10 ML Syringe IV (07:01)
[2020-08-20] MEDS: 0.9% Normal Saline 1,000 ML 100 ML IV (07:01)
[2020-08-20] MEDS: NETARSUDIL MESYLATE 1 DRP OPHTHALMIC ×2 (07:05→22:41)
[2020-08-20 07:35] LABS: Magnesium 1.9 mg/dL (1.6-2.6); Phosphorus 2.5 mg/dL (2.5-4.9)
--- NOTE | 2020-08-20 07:49 | PN.ORTHO_ITS ---
Subjective Subjective Pt. is POD #5 s.p left TKR. Was admitted yesterday with nausea/ vomiting and weakness secondary to an adverse pain medication reaction. Otherwise, his knee has been feeling good. Today, on Acetominophen, he denies N/V, he rates his pain at 3/10. H e has some difficulty with ambulation. His has a mixed connective tissue disorder and is homebound Objective Data Objective Data Vital Signs: Vital Signs Temp Pulse Resp BP Pulse Ox 98.6 F 78 18 157/79 H 94 08/20/20 06:07 08/20/20 06:07 08/20/20 06:07 08/20/20 06:07 08/20/20 06:07 Oxygen Delivery Method Room Air Weight: 220 lb Body Mass Index (BMI) 29.4 Intake & Output: Intake and Output for Last 24 Hours 08/18/20 08/19/20 08/20/20 23:59 23:59 23:59 Intake Total 2520 / 2520 1365 / 1365 Balance 2520 / 2520 1365 / 1365 Lab / Micro Data Result Diagrams: 08/20/20 05:34 08/20/20 05:34 Labs: Laboratory Results - last 24 hr 08/19/20 08/19/20 08/19/20 08:36 08:36 10:45 WBC 7.2 RBC 3.16 L Hgb 9.5 L Hct 28.2 L MCV 89.2 MCH 30.1 MCHC 33.7 RDW Std Deviation 40.5 RDW Coeff of Gene 12.5 Plt Count 171 MPV 10.4 Immature Gran % (Auto) 0.600 Neut % (Auto) 84.1 H Lymph % (Auto) 5.6 L [place] % (Auto) 9.5 Eos % (Auto) 0.1 Baso % (Auto) 0.1 Absolute Neuts (auto) 6.0 Absolute Lymphs (auto) 0.40 L Nucleated RBC % 0 Differential Comment COMMENT Sodium 134 L Potassium 3.1 L Chloride 96 L Carbon Dioxide 28.0 Anion Gap 10 BUN 12 Creatinine 0.64 L Estim Creat Clear Calc 64.36 Est GFR (MDRD) Af Amer 153 Est GFR (MDRD) Non-Af 127 BUN/Creatinine Ratio 18.7 Glucose 118 H Calcium 8.5 Phosphorus Magnesium Total Bilirubin 1.20 H Direct Bilirubin 0.39 H AST 27 ALT 24 Alkaline Phosphatase 65 Troponin I High Sens 13.3 Total Protein 6.3 L Albumin 2.8 L Globulin 3.5 Lipase 69 L Urine Color Yellow Urine Clarity Clear Urine pH 6.5 Ur Specific [place] 1.010 Urine Protein Negative Urine Glucose (UA) Normal Urine Ketones 50 H Urine Occult Blood Negative Urine Nitrite Negative Urine Bilirubin Negative Urine Urobilinogen Normal Ur Leukocyte Esterase Negative Urine RBC 0 SEEN Urine WBC 0-5 SEEN Ur Squamous Epith Cells 0-5 SEEN Urine Bacteria RARE Urine Mucus 0 SEEN 08/20/20 08/20/20 08/20/20 05:34 05:34 05:34 WBC 5.1 RBC 2.84 L Hgb 8.7 L Hct 25.5 L MCV 89.8 MCH 30.6 MCHC 34.1 RDW Std Deviation 41.5 RDW Coeff of Gene 12.6 Plt Count 178 MPV 9.9 Immature Gran % (Auto) 0.200 Neut % (Auto) 72.1 H Lymph % (Auto) 15.5 L [place] % (Auto) 10.8 H Eos % (Auto) 1.0 Baso % (Auto) 0.4 Absolute Neuts (auto) 3.7 Absolute Lymphs (auto) 0.79 L Nucleated RBC % 0 Differential Comment Sodium 140 Potassium 3.2 L Chloride 104 Carbon Dioxide 30.0 Anion Gap 6 BUN 8 Creatinine 0.49 L Estim Creat Clear Calc 62.51 Est GFR (MDRD) Af Amer 211 Est GFR (MDRD) Non-Af 174 BUN/Creatinine Ratio 16.5 Glucose 91 Calcium 7.9 L Phosphorus 2.5 Magnesium 1.9 Total Bilirubin Direct Bilirubin AST ALT Alkaline Phosphatase Troponin I High Sens Total Protein Albumin Globulin Lipase Urine Color Urine Clarity Urine pH Ur Specific [place] Urine Protein Urine Glucose (UA) Urine Ketones Urine Occult Blood Urine Nitrite Urine Bilirubin Urine Urobilinogen Ur Leukocyte Esterase Urine RBC Urine WBC Ur Squamous Epith Cells Urine Bacteria Urine Mucus Radiography Diagnostic Testing: Radiology Impression Chest X-Ray 08/19/20 09:58 IMPRESSION: Normal x-ray examination of the chest. Electronically Signed: Olegario Simpson MD at 10:25 EDT Tel , Service support , Rhythm Strip Rhythm Strip: Sinus Rhythm Rate: 82 Ectopy: None Physical Exam Const alert, oriented x3 and no apparent distress Eyes PERRL Extremity normal capillary refill and no calf tenderness General Extremity: edema left (foot, as expected s/p TKR) Left Lower Extremity: knee joint Skin Skin Narrative: Skin incision is stable. He has minimal tourniquet pain about the thigh. Negative Ellen's and Matthew signs Neuro moves all extremities and no sensory deficits noted Psych mental status grossly normal Assessment & Plan Assessment/Plan (1) Narcotic-induced nausea and vomiting: PLAN: s/ TKR Will continue with current medication regimen. Consider home PT for a few weeks until he is more ambulatory since his is essentially homebound PT [facility] in [facility]
[2020-08-20] MEDS: BRIMONIDINE 0.15% 5 ML Bottle 1 DRP RIGHT EYE ×2 (09:03→17:40)
[2020-08-20] MEDS: Pantoprazole Sodium 20 MG Tablet PO (09:04)
[2020-08-20] MEDS: Atorvastatin Calcium 20 MG Tablet PO (09:04)
[2020-08-20] MEDS: Triamterene 37.5MG/Hctz 25MG Capsule 1 CAP PO (09:04)
[2020-08-20 09:15] VITALS: BP 159/83; PULSE 99; RESP 18; TEMP 37.2; O2SAT 98
[2020-08-20] MEDS: Potassium Chloride Oral Tablet 20 MEQ 60 MEQ PO (09:38)
--- NOTE | 2020-08-20 10:20 | PCM.PN.HOSP ---
Subjective Subjective Doing well, was able to tolerate a diet, will work with physical therapy today. No issues overnight. Objective Data Objective Data Vital Signs: Vital Signs Temp Pulse Resp BP Pulse Ox 99.0 F 99 18 159/83 H 98 08/20/20 09:15 08/20/20 09:15 08/20/20 09:15 08/20/20 09:15 08/20/20 09:15 Oxygen Delivery Method Room Air Weight: 220 lb Body Mass Index (BMI) 29.4 Intake & Output: Intake and Output for Last 24 Hours 08/19/20 08/20/20 08/21/20 03:59 03:59 03:59 Intake Total 2520 / 2520 1365 / 1365 Balance 2520 / 2520 1365 / 1365 Lab / Micro Data Result Diagrams: 08/20/20 05:34 08/20/20 05:34 Labs: Laboratory Results - last 24 hr 08/19/20 08/20/20 08/20/20 10:45 05:34 05:34 WBC 5.1 RBC 2.84 L Hgb 8.7 L Hct 25.5 L MCV 89.8 MCH 30.6 MCHC 34.1 RDW Std Deviation 41.5 RDW Coeff of Gene 12.6 Plt Count 178 MPV 9.9 Immature Gran % (Auto) 0.200 Neut % (Auto) 72.1 H Lymph % (Auto) 15.5 L Crawford % (Auto) 10.8 H Eos % (Auto) 1.0 Baso % (Auto) 0.4 Absolute Neuts (auto) 3.7 Absolute Lymphs (auto) 0.79 L Nucleated RBC % 0 Sodium 140 Potassium 3.2 L Chloride 104 Carbon Dioxide 30.0 Anion Gap 6 BUN 8 Creatinine 0.49 L Estim Creat Clear Calc 62.51 Est GFR (MDRD) Af Amer 211 Est GFR (MDRD) Non-Af 174 BUN/Creatinine Ratio 16.5 Glucose 91 Calcium 7.9 L Phosphorus Magnesium Urine Color Yellow Urine Clarity Clear Urine pH 6.5 Ur Specific [place] 1.010 Urine Protein Negative Urine Glucose (UA) Normal Urine Ketones 50 H Urine Occult Blood Negative Urine Nitrite Negative Urine Bilirubin Negative Urine Urobilinogen Normal Ur Leukocyte Esterase Negative Urine RBC 0 SEEN Urine WBC 0-5 SEEN Ur Squamous Epith Cells 0-5 SEEN Urine Bacteria RARE Urine Mucus 0 SEEN 08/20/20 05:34 WBC RBC Hgb Hct MCV MCH MCHC RDW Std Deviation RDW Coeff of Gene Plt Count MPV Immature Gran % (Auto) Neut % (Auto) Lymph % (Auto) Crawford % (Auto) Eos % (Auto) Baso % (Auto) Absolute Neuts (auto) Absolute Lymphs (auto) Nucleated RBC % Sodium Potassium Chloride Carbon Dioxide Anion Gap BUN Creatinine Estim Creat Clear Calc Est GFR (MDRD) Af Amer Est GFR (MDRD) Non-Af BUN/Creatinine Ratio Glucose Calcium Phosphorus 2.5 Magnesium 1.9 Urine Color Urine Clarity Urine pH Ur Specific [place] Urine Protein Urine Glucose (UA) Urine Ketones Urine Occult Blood Urine Nitrite Urine Bilirubin Urine Urobilinogen Ur Leukocyte Esterase Urine RBC Urine WBC Ur Squamous Epith Cells Urine Bacteria Urine Mucus Radiography Diagnostic Testing: Radiology Impression Chest X-Ray 08/19/20 09:58 IMPRESSION: Normal x-ray examination of the chest. Electronically Signed: Olegario Simpson MD at 10:25 EDT Tel , Service support , Rhythm Strip Rhythm Strip: Sinus Rhythm Rate: 82 Ectopy: None Physical Exam Const alert, oriented x3 and no apparent distress General Appearance: cooperative HEENT normocephalic Eyes PERRL, EOMs intact bilaterally and conjunctivae normal Neck supple and no JVD Resp normal respiratory effort, no retractions, no use of accessory muscles and clear to auscultation bilaterally Auscultation: Negative for crackles, rales, rhonchi or wheezes Cardio regular rate, regular rhythm, S1 normal heart sound, S2 normal heart sound and no murmurs GI soft to palpation, non-tender and non-distended; Negative for hepatosplenomegaly Extremity no clubbing, cyanosis or edema Skin no rashes or lesions noted Skin Narrative: Incision intact over the left knee, dressing with minor bleedthrough Neuro no focal motor deficits and no sensory deficits noted Psych affect normal Appearance: appropriate Assessment & Plan Assessment/Plan (1) Debility: (2) Narcotic-induced nausea and vomiting: (3) Status post total left knee replacement: PLAN: 1. Narcotic induced nausea and vomiting status post left total knee replacement on 08/15/2020/debility -Discontinue IV fluids and continue with a general diet -Hemoglobin dropped to 8.7 today, will recheck in the morning and if necessary call orthopedic surgery for recommendations Xarelto for his DVT prophylaxis -Continue with Tylenol only -Pain does appear controlled, PT/OT for evaluation -Case management for possible placement secondary to inability to complete ADLs -Continue with Xarelto for DVT prophylaxis -Mag and Phos are normal today, will replace his potassium at 3.2 2. Glaucoma -Stable -Continue his home meds 3. HTN/HLD -SBP is stable -Continue with his home blood pressure medications as well as statin 4. BPH -Stable -Continue with his home medications 5. GERD -Stable -Continue with PPI and Tums he did have a GI bleed in his 30s DVT: Xarelto Charges/Coding Visit Charges OBSV E&M: 39488 Subsequent observation care L2
--- NOTE | 2020-08-20 10:54 | CASEMGMT ---
Addendum entered by Francoise Mir 08/20/20 11:33: PT Symone states pt would be appropriate for TCU. Pt is aware that precert is needed by insurance. Pt was on the phone with and he put her on speaker to hear of plan. Pt states PT taught him exercises that he can do in the room. updated on plan. Original Note: TRAVIS EDDY in to discuss STEVE form with patient. TRAVIS EDDY explained STEVE form, patient voiced understanding. Pt signed form and filed in chart. Pt provided with a copy of signed STEVE form. Patient states at this time his is down meaning ill and unable to help take care of him. He states she needs to come to the hospital. Pt states he wishes to go to TCU after this hospitalization. He denied need for list of facilities that meet his geographic region, star ratings and in network. Therapy in to see pt at this time. Notified Ilene JAMIL of pt request.
[2020-08-20] MEDS: Latanoprost 0.005% 1 Bottle 1 DRP RIGHT EYE (11:50)
--- NOTE | 2020-08-20 12:03 | CASEMGMT ---
SW Note SW sent email to Porsha Willis that patient has [facility] and confirming that patient will need precert for admission to TPU. LOULOU will follow Plan: TPU per patient. Ilene CORTES
[2020-08-20 14:02] VITALS: BP 141/69; PULSE 86; RESP 16; TEMP 37.1; O2SAT 97
--- NOTE | 2020-08-20 16:07 | CASEMGMT ---
Patient was provided a list of [facility] providers including quality and resource use data and consistent with the patient?s preferred geographic region, medical needs, and insurance network although pt had already stated he wanted TCU per request of Ilene JAMIL.
[2020-08-20 20:02] VITALS: BP 160/74; PULSE 94; RESP 16; TEMP 37; O2SAT 95
[2020-08-21 02:00] VITALS: BP 168/77; PULSE 95; RESP 16; TEMP 36.8; O2SAT 97
[2020-08-21 05:36] LABS: Absolute Lymphocyte Count 0.82 X10^3/uL (0.83-4.51); Absolute Neutrophil Count 4.3 X10^3/uL (2.0-7.7); Basophil# 0.03 X10^3/uL; Basophil% 0.5 % (0-1); Eosinophil# 0.08 X10^3/uL; Eosinophils% 1.4 % (0-5); Hematocrit 26.2 % (40-54); Lymphocyte # 0.82 X10^3/ul (0.83-4.51); Lymphocyte % 14.1 % (19-41); Mean Corp Hgb Conc 34.4 g/dL (32-36); Mean Corpuscular Hgb 30.9 pg (27.0-32.0); Mean Platelet Vol. 9.7 fl (6.2-12.0); Monocyte% 10.3 % (0-10); NRBC Flagged by Analyzer 0 % (0-5); Neutrophil # 4.27 X10^3/uL (2.7-7.7); Neutrophil % 73.5 % (47-70); Platelet Count 211 K/mm3 (150-450); RBC Distribution Width CV 12.8 % (11.6-14.6); RBC Distribution Width SD 42.1 fl (35.1-43.9); Red Blood Count 2.91 M/mm3 (4.6-6.2); White Blood Count 5.8 K/mm3 (4.4-11.0)
[2020-08-21 06:02] LABS: Anion Gap 4 (5-15); BUN 10 mg/dL (7-18); BUN/Creat Ratio 19.1 RATIO (10-20); Calcium,Total 8.4 mg/dL (8.5-10.1); Chloride 104 mmol/L (98-107); Creatinine, Serum 0.52 mg/dL (0.70-1.30); EST Glomerular Filtration Rate 160 mL/min (>60); Est Glom Filt Rate - Afr Amer 194 mL/min (>60); Estimated Creatinine Clearance 62.51 ml/min; Glucose 103 mg/dL (74-106); Potassium 3.3 mmol/L (3.5-5.1); Sodium Level 140 mmol/L (136-145)
[2020-08-21] MEDS: Acetaminophen 500 MG Tablet 1000 MG PO ×3 (06:40→23:04)
[2020-08-21] MEDS: Rivaroxaban 10 MG Tablet PO (06:40)
[2020-08-21] MEDS: BRIMONIDINE 0.15% 5 ML Bottle 1 DRP RIGHT EYE ×2 (07:39→17:17)
--- NOTE | 2020-08-21 07:39 | PCM.PN.ORT ---
Subjective Subjective Patient doing well on Acetominophen for pain. Wishes to shower today. Plan is for TCU tomorrow. Objective Data Objective Data Vital Signs: Vital Signs Temp Pulse Resp BP Pulse Ox 98.3 F 95 16 168/77 H 97 08/21/20 02:00 08/21/20 02:00 08/21/20 02:00 08/21/20 02:00 08/21/20 02:00 Oxygen Delivery Method Room Air Weight: 220 lb Body Mass Index (BMI) 29.4 Intake & Output: Intake and Output for Last 24 Hours 08/19/20 08/20/20 08/21/20 23:59 23:59 23:59 Intake Total 2520 / 2520 3693 / 3693 Output Total 400 / 1350 1750 / 1750 Balance 2520 / 2520 3293 / 2343 -1750 / -1750 Lab / Micro Data Result Diagrams: 08/21/20 05:20 08/21/20 05:20 Labs: Laboratory Results - last 24 hr 08/21/20 08/21/20 05:20 05:20 WBC 5.8 RBC 2.91 L Hgb 9.0 L Hct 26.2 L MCV 90.0 MCH 30.9 MCHC 34.4 RDW Std Deviation 42.1 RDW Coeff of Gene 12.8 Plt Count 211 MPV 9.7 Immature Gran % (Auto) 0.200 Neut % (Auto) 73.5 H Lymph % (Auto) 14.1 L D[place]key % (Auto) 10.3 H Eos % (Auto) 1.4 Baso % (Auto) 0.5 Absolute Neuts (auto) 4.3 Absolute Lymphs (auto) 0.82 L Nucleated RBC % 0 Sodium 140 Potassium 3.3 L Chloride 104 Carbon Dioxide 32.0 Anion Gap 4 L BUN 10 Creatinine 0.52 L Estim Creat Clear Calc 62.51 Est GFR (MDRD) Af Amer 194 Est GFR (MDRD) Non-Af 160 BUN/Creatinine Ratio 19.1 Glucose 103 Calcium 8.4 L Rhythm Strip Rhythm Strip: Sinus Rhythm Rate: 82 Ectopy: None Physical Exam Const alert, oriented x3 and no apparent distress General Appearance: cooperative HEENT Head and Scalp: atraumatic Extremity normal capillary refill, no clubbing, cyanosis or edema and no calf tenderness General Extremity: edema left lower extremity trace Left Lower Extremity: knee joint inspection (Incison stable without drainage. Mepilex dressing in place.) Neuro no sensory deficits noted Assessment & Plan Assessment/Plan (1) Status post total left knee replacement: PLAN: Keep office appointment 10 days post-op for wound check and jaclyn out. HgB improved today from 8.7 to 9.0. Continue Xarelto for DVT prophylaxis. Tylenol for pain. OK to shower with assistance. Continue PT with walker, WBAT. I will be out from 08/22/2020 - 08/29/2020. [facility] doctor protection consultant covering. Ortho off case for now. Will re-evaluate at your request, otherwise at scheduled office appointment.
[2020-08-21] MEDS: Potassium Chloride Oral Tablet 20 MEQ 60 MEQ PO (07:40)
[2020-08-21 07:46] VITALS: BP 148/94; PULSE 94; RESP 18; TEMP 36.4; O2SAT 96
[2020-08-21] MEDS: Pantoprazole Sodium 20 MG Tablet PO (09:31)
[2020-08-21] MEDS: Atorvastatin Calcium 20 MG Tablet PO (09:31)
[2020-08-21] MEDS: Triamterene 37.5MG/Hctz 25MG Capsule 1 CAP PO (09:32)
[2020-08-21] MEDS: Latanoprost 0.005% 1 Bottle 1 DRP RIGHT EYE (11:19)
--- NOTE | 2020-08-21 12:43 | PCM.PN.HOSP ---
Subjective Subjective Doing well, no issues overnight. Knee pain is controlled, continues to have some GERD which is relieved by his Tums. As potassium still remains low and will be replaced, his mag and Phos were checked yesterday were normal Objective Data Objective Data Vital Signs: Vital Signs Temp Pulse Resp BP Pulse Ox 97.6 F L 94 18 148/94 H 96 08/21/20 07:46 08/21/20 07:46 08/21/20 07:46 08/21/20 07:46 08/21/20 07:46 Oxygen Delivery Method Room Air Weight: 220 lb Body Mass Index (BMI) 29.4 Intake & Output: Intake and Output for Last 24 Hours 08/20/20 08/21/20 08/22/20 03:59 03:59 03:59 Intake Total 2520 / 2520 3693 / 3693 Output Total 1350 / 1350 1250 / 1250 Balance 2520 / 2520 2343 / 2343 -1250 / -1250 Lab / Micro Data Result Diagrams: 08/21/20 05:20 08/21/20 05:20 Labs: Laboratory Results - last 24 hr 08/21/20 08/21/20 05:20 05:20 WBC 5.8 RBC 2.91 L Hgb 9.0 L Hct 26.2 L MCV 90.0 MCH 30.9 MCHC 34.4 RDW Std Deviation 42.1 RDW Coeff of Gene 12.8 Plt Count 211 MPV 9.7 Immature Gran % (Auto) 0.200 Neut % (Auto) 73.5 H Lymph % (Auto) 14.1 L [place] % (Auto) 10.3 H Eos % (Auto) 1.4 Baso % (Auto) 0.5 Absolute Neuts (auto) 4.3 Absolute Lymphs (auto) 0.82 L Nucleated RBC % 0 Sodium 140 Potassium 3.3 L Chloride 104 Carbon Dioxide 32.0 Anion Gap 4 L BUN 10 Creatinine 0.52 L Estim Creat Clear Calc 62.51 Est GFR (MDRD) Af Amer 194 Est GFR (MDRD) Non-Af 160 BUN/Creatinine Ratio 19.1 Glucose 103 Calcium 8.4 L Rhythm Strip Rhythm Strip: Sinus Rhythm Rate: 82 Ectopy: None Physical Exam Const alert, oriented x3 and no apparent distress General Appearance: cooperative HEENT normocephalic and moist oral mucous membranes Eyes PERRL, EOMs intact bilaterally and conjunctivae normal Neck supple and no JVD Resp normal respiratory effort, no retractions, no use of accessory muscles and clear to auscultation bilaterally Auscultation: Negative for crackles, rales, rhonchi or wheezes Cardio regular rate, regular rhythm, S1 normal heart sound, S2 normal heart sound and no murmurs GI soft to palpation, non-tender and non-distended; Negative for hepatosplenomegaly Extremity no clubbing, cyanosis or edema Skin no rashes or lesions noted Skin Narrative: Incision intact over the left knee, dressing with minor bleedthrough Neuro no focal motor deficits and no sensory deficits noted Psych affect normal Appearance: appropriate Assessment & Plan Assessment/Plan (1) Debility: (2) Narcotic-induced nausea and vomiting: (3) Status post total left knee replacement: PLAN: 1. Narcotic induced nausea and vomiting status post left total knee replacement on 08/15/2020/debility -Discontinue IV fluids and continue with a general diet -Hemoglobin up to 9.0 today, will continue to monitor -Continue with Tylenol only -Pain does appear controlled, PT/OT for evaluation -Case management for possible placement secondary to inability to complete ADLs -Continue with Xarelto for DVT prophylaxis -Mag and Phos are normal, will replace his potassium at 3.3 2. Glaucoma -Stable -Continue his home meds 3. HTN/HLD -SBP is stable -Continue with his home blood pressure medications as well as statin 4. BPH -Stable -Continue with his home medications 5. GERD -Stable -Continue with PPI and Tums he did have a GI bleed in his 30s DVT: Xarelto Charges/Coding Visit Charges OBSV E&M: 35678 Subsequent observation care L2
[2020-08-21 13:38] VITALS: BP 136/69; PULSE 91; RESP 16; TEMP 36.7; O2SAT 97
[2020-08-21 17:27] VITALS: BP 155/84; PULSE 87; RESP 18; TEMP 37.2; O2SAT 96
[2020-08-21 22:21] VITALS: BP 132/65; PULSE 88; RESP 16; TEMP 36.9; O2SAT 97
[2020-08-21] MEDS: NETARSUDIL MESYLATE 1 DRP OPHTHALMIC (23:04)
[2020-08-22 04:10] VITALS: BP 150/69; PULSE 81; RESP 18; TEMP 36.7; O2SAT 98
[2020-08-22 06:30] LABS: Absolute Lymphocyte Count 0.95 X10^3/uL (0.83-4.51); Absolute Neutrophil Count 3.5 X10^3/uL (2.0-7.7); Basophil# 0.02 X10^3/uL; Basophil% 0.4 % (0-1); Eosinophil# 0.13 X10^3/uL; Eosinophils% 2.5 % (0-5); Hematocrit 27.9 % (40-54); Hemoglobin 9.4 g/dL (13.0-16.5); Lymphocyte # 0.95 X10^3/ul (0.83-4.51); Lymphocyte % 18.3 % (19-41); Mean Corp Hgb Conc 33.7 g/dL (32-36); Mean Corpuscular Hgb 30.7 pg (27.0-32.0); Mean Corpuscular Volume 91.2 fL (80-94); Mean Platelet Vol. 9.2 fl (6.2-12.0); Monocyte# 0.55 X10^3/uL; Monocyte% 10.6 % (0-10); NRBC Flagged by Analyzer 0 % (0-5); Neutrophil # 3.54 X10^3/uL (2.7-7.7); Platelet Count 250 K/mm3 (150-450); RBC Distribution Width CV 12.9 % (11.6-14.6); RBC Distribution Width SD 42.2 fl (35.1-43.9); Red Blood Count 3.06 M/mm3 (4.6-6.2); White Blood Count 5.2 K/mm3 (4.4-11.0)
[2020-08-22] MEDS: Acetaminophen 500 MG Tablet 1000 MG PO ×2 (06:40→12:47)
[2020-08-22] MEDS: BRIMONIDINE 0.15% 5 ML Bottle 1 DRP RIGHT EYE (06:40)
[2020-08-22] MEDS: Rivaroxaban 10 MG Tablet PO (06:40)
[2020-08-22 06:47] LABS: Anion Gap 5 (5-15); BUN 11 mg/dL (7-18); BUN/Creat Ratio 18.9 RATIO (10-20); Calcium,Total 8.7 mg/dL (8.5-10.1); Chloride 102 mmol/L (98-107); Creatinine, Serum 0.58 mg/dL (0.70-1.30); EST Glomerular Filtration Rate 142 mL/min (>60); Est Glom Filt Rate - Afr Amer 171 mL/min (>60); Estimated Creatinine Clearance 62.51 ml/min; Glucose 95 mg/dL (74-106); Potassium 3.6 mmol/L (3.5-5.1); Sodium Level 138 mmol/L (136-145)
[2020-08-22] MEDS: Atorvastatin Calcium 20 MG Tablet PO (07:40)
[2020-08-22] MEDS: Triamterene 37.5MG/Hctz 25MG Capsule 1 CAP PO (07:40)
[2020-08-22] MEDS: Pantoprazole Sodium 20 MG Tablet PO (07:40)
[2020-08-22 08:00] VITALS: BP 147/83; PULSE 88; RESP 14; TEMP 36.8; O2SAT 94
--- NOTE | 2020-08-22 10:40 | CASEMGMT ---
Addendum entered by Francoise Mir 08/22/20 12:17: TRAVIS EDDY back into pt room. Pt has decided now to go home. He is aware this CM called Gina Reyes and he will need to reschedule his outpt therapy. He states he will do this right now. Pt deniees further needs. Plan to dc home with outpt therapy. Original Note: TRAVIS EDDY in to pt room. Pt states his is still not ready for him to come home. Made pt aware that he is doing well with therapy and there is a possibility that his insurance will not approve him to go to TCU. Pt is asking for self pay stevenson. Pt called and pt put her on speakerphone. Made her aware of the options at this point as far as home with outpt PT vs attempting to get precert for [facility] TCU. Pt requests to speak to LOULOU regarding self pay stevenson. Notified Francisco JAMIL.
--- NOTE | 2020-08-22 11:12 | PCM.DC ---
Discharge Instructions Diet Discharge Diet: No restrictions Activity Discharge Activity: Return to Normal Activity and May Not Drive (Until sees PCP) Weight Bearing Status: Weight bearing as tolerated Dressing / Incision Call your doctor if you observe: Fever of 101 or Higher, Coldness, Increased Pain, Numbness or Tingling, Change in Color, Inability to urinate, Inability to have a bowel movement, Shortness of breath, Dizziness, Fainting spells, Swelling in the ankles, Chest pain, Prolonged hiccupping, Increased palpitations (irregular heartbeat), Calf discomfort and Uncontrolled pain Follow Up Care Test Results: Test results from this visit will be discussed in further detail at your follow-up appointment, if applicable. Discharge Plan Admission Admit Date/Time: 08/19/20 10:10 Primary Reason for Your Visit: Left TKR Attending Provider: Joseph Garcia Primary Care Provider: Bertin Ragland Discharge Orders/Prescriptions Prescriptions: Continued brimonidine 0.15 % drops 1 drp RIGHT EYE BID RF: 0 glucosamine sulfate 500 mg capsule 1,200 mg PO DAILY RF: 0 latanoprost 0.005 % drops 1 drp RIGHT EYE BID RF: 0 Rhopressa 0.02 % drops 1 drp RIGHT EYE QPM RF: 0 triamterene-hydrochlorothiazid 1 CAP capsule 1 cap PO DAILY RF: 0 omeprazole 20 MG capsule 20 mg PO DAILY RF: 0 alfuzosin 10 MG tablet 10 mg PO BID RF: 0 selenium sulfide-menthol 118 ML suspension 118 ml TP QODAY RF: 0 atorvastatin 10 mg tablet 20 mg PO DAILY RF: 0 potassium chloride 8 mEq Capsule, Extended Release 8 meq PO DAILY RF: 0 polyethylene glycol 3350 [Miralax] 17 gram Powder In Packet 17 g PO DAILY RF: 0 oxycodone 5 mg Tablet 5 - 10 mg PO Q4H PRN MDD 40mg PRN (Reason: Pain Score 4-10) 7 Days Qty: 84 RF: 0 acetaminophen 500 mg Tablet 1,000 mg PO Q8 MDD 3000mg PRN (Reason: pain) 14 Days Qty: 90 RF: 0 Xarelto 10 mg Tablet 10 mg PO DAILY@0600 MDD 10mg 30 Days Qty: 30 RF: 0 Discontinued acetaminophen 500 mg Capsule 1,000 mg PO QHS RF: 0 Referrals / Follow Up: Bertin Ragland MD [Primary Care Provider] - Disposition Disposition (needs filled in before D/C Order can be placed): Home, Self Care
--- NOTE | 2020-08-22 11:16 | DS.PCM_ITS ---
Providers Date of Admission: 08/19/20 Primary Care Physician: Dr. Bertin Ragland MD Reason For Visit: N/V AND GENERALIZED WEAKNESS Diagnosis Discharge Diagnosis (1) Debility: Status: Acute Code(s): R53.81 - Other malaise (2) Narcotic-induced nausea and vomiting: Status: Acute Code(s): R11.2 - Nausea with vomiting, unspecified; T40.605A - Adverse effect of unspecified narcotics, initial encounter (3) Status post total left knee replacement: Status: Acute Code(s): Z96.652 - Presence of left artificial knee joint Medications at Discharge Home Medications alfuzosin 10 mg PO BID 03/13/13 omeprazole 20 mg PO DAILY 03/13/13 selenium sulfide-menthol 118 ml TP QODAY 03/13/13 triamterene-hydrochlorothiazid 1 cap PO DAILY 03/13/13 atorvastatin 10 mg tablet 20 mg PO DAILY tab 02/09/19 brimonidine 0.15 % eye drops 1 drp RIGHT EYE BID ml 02/09/19 glucosamine sulfate 500 mg capsule 1,200 mg PO DAILY 02/09/19 latanoprost 0.005 % eye drops 1 drp RIGHT EYE BID ml 02/09/19 netarsudil 0.02 % eye drops 1 drp RIGHT EYE QPM 02/09/19 polyethylene glycol 3350 [Miralax] 17 g PO DAILY 08/01/20 potassium chloride 8 meq PO DAILY 08/01/20 Xarelto 10 mg PO DAILY@0600 30 Days #30 tab MDD 10mg 08/16/20 acetaminophen 1,000 mg PO Q8 PRN 14 Days #90 tab NS MDD 3000mg 08/16/20 oxycodone 5 - 10 mg PO Q4H PRN PRN 7 Days #84 tab NS MDD 40mg 08/16/20 Hospital Course Summary of Care Provided Hospital Course: This 84-year-old gentleman was admitted for nausea, vomiting and weakness on 08/19 after recent discharge on 08/16 after left TKR. Patient had nausea vomiting after taking oxycodone and felt very weak. Patient was admitted on [facility] floor. When seen patient had narcotic induced nausea and vomiting. Pain is controlled with Tylenol. Was evaluated PT and OT and indeed good with walking on walker therefore advised outpatient physical therapist. Mild hypokalemia and was replaced. Magnesium and phosphorus were normal. Patient has a comorbidities which include glaucoma, hypertension, dyspnea, BPH, GERD. Patient on Xarelto for DVT prophylaxis after knee surgery. Discharge medication reconciliation done. Discharge follow-up instructions completed. Discharge process discussed with the patient and all questions were answered to patient's satisfaction. Patient is discharged home with outpatient PT. Total time spent, exact 35 minutes on discharge meds reconciliation, examination, coordination of care with nurses and ancillary staff, review of imaging and blood test and discussion with the patient on follow-up instruc tions. Physical Exam Narrative Seen and examined. Patient was walking good with the help of walker. Being evaluated by physical therapist. Physical exam General: Alert, Oriented x3, Cooperative HEENT: Atraumatic, PERRLA, EOMI, Normocephalic Oral: No Gingival or Mucosal Lesions/ Ulcerations Neck: Supple, No JVD, Negative Carotid Bruits Lungs: Air entry equal in bilateral lung bases. No crepitation/rhonchi Cardiovascular: Regular rate, Regular Rhythm, Normal S1, Normal S2, No murmurs Abdomen: Bowel Sounds Present, Soft, Non Tender, Non-Distended : No renal angle tenderness. No suprapubic tenderness. Extremities: No edema, Capillary Refill Less than 3 Seconds Skin: No rashes, No breakdown Musculoskeletal: Left knee with ice pack on it. No tenderness or excessive edema. No Tenderness to Palpation of Joints or Extremities Neurological: Cranial nerves II-XII grossly intact, Deep Tendon Reflexes 2+/4 and Symmetrical, Neuro grossly intact Psych/Mental Status: Normal Affect, Appropriate. Weight / BMI Weight Weight: 220 lb Body Mass Index (BMI) 29.4 ABG / Lab / Microbiology Data Result Diagrams: 08/22/20 06:00 08/22/20 06:00 Laboratory: Laboratory Results - last 24 hr 08/22/20 08/22/20 06:00 06:00 WBC 5.2 RBC 3.06 L Hgb 9.4 L Hct 27.9 L MCV 91.2 MCH 30.7 MCHC 33.7 RDW Std Deviation 42.2 RDW Coeff of Gene 12.9 Plt Count 250 MPV 9.2 Immature Gran % (Auto) 0.200 Neut % (Auto) 68.0 Lymph % (Auto) 18.[address] [place] % (Auto) 10.6 H Eos % (Auto) 2.5 Baso % (Auto) 0.4 Absolute Neuts (auto) 3.5 Absolute Lymphs (auto) 0.95 Nucleated RBC % 0 Sodium 138 Potassium 3.6 Chloride 102 Carbon Dioxide 31.0 Anion Gap 5 BUN 11 Creatinine 0.58 L Estim Creat Clear Calc 62.51 Est GFR (MDRD) Af Amer 171 Est GFR (MDRD) Non-Af 142 BUN/Creatinine Ratio 18.9 Glucose 95 Calcium 8.7 D/C Instructions Discharge Diet: No restrictions Weight Bearing Status: Weight bearing as tolerated Call your doctor if you observe: Fever of 101 or Higher, Coldness, Increased Pain, Numbness or Tingling, Change in Color, Inability to urinate, Inability to have a bowel movement, Shortness of breath, Dizziness, Fainting spells, Swelling in the ankles, Chest pain, Prolonged hiccupping, Increased palpitations (irregular heartbeat), Calf discomfort and Uncontrolled pain Meaningful Use Info Meaningful Use Diagnoses (Choose all that apply): None applicable Discharge Plan Admission Admit Date/Time: 08/19/20 10:10 Primary Reason for Your Visit: Left TKR Attending Provider: Joseph Garcia Primary Care Provider: Bertin Ragland Discharge Orders/Prescriptions Prescriptions: Continued brimonidine 0.15 % drops 1 drp RIGHT EYE BID RF: 0 glucosamine sulfate 500 mg capsule 1,200 mg PO DAILY RF: 0 latanoprost 0.005 % drops 1 drp RIGHT EYE BID RF: 0 Rhopressa 0.02 % drops 1 drp RIGHT EYE QPM RF: 0 triamterene-hydrochlorothiazid 1 CAP capsule 1 cap PO DAILY RF: 0 omeprazole 20 MG capsule 20 mg PO DAILY RF: 0 alfuzosin 10 MG tablet 10 mg PO BID RF: 0 selenium sulfide-menthol 118 ML suspension 118 ml TP QODAY RF: 0 atorvastatin 10 mg tablet 20 mg PO DAILY RF: 0 potassium chloride 8 mEq Capsule, Extended Release 8 meq PO DAILY RF: 0 polyethylene glycol 3350 [Miralax] 17 gram Powder In Packet 17 g PO DAILY RF: 0 oxycodone 5 mg Tablet 5 - 10 mg PO Q4H PRN MDD 40mg PRN (Reason: Pain Score 4-10) 7 Days Qty: 84 RF: 0 acetaminophen 500 mg Tablet 1,000 mg PO Q8 MDD 3000mg PRN (Reason: pain) 14 Days Qty: 90 RF: 0 Xarelto 10 mg Tablet 10 mg PO DAILY@0600 MDD 10mg 30 Days Qty: 30 RF: 0 Discontinued acetaminophen 500 mg Capsule 1,000 mg PO QHS RF: 0 Referrals / Follow Up: Bertin Ragland MD [Primary Care Provider] - Disposition Disposition (needs filled in before D/C Order can be placed): Home, Self Care Charges/Coding Visit Charges Inpatient E&M: 10700 Disch Hosp
--- NOTE | 2020-08-22 11:18 | CASEMGMT ---
Social Work Note LOULOU reviewed PT/OT, pt walked 150ft standby assist Saturday and Contact Guard 90+15 feet Saturday. Pt Independent/Supervision with transfers/bed mobility. Pt inquiring costs of Private pay for TCU. LOULOU placed a call to Porsha with TCU, private pay for TCU is $660 a day, SW did $660 x30 for month up front, pt would need to pay around $20,000 for month up front for TCU. SW in to speak with pt. LOULOU introduced self and role at [facility]. Pt has Carmen on phone call, placed on speaker. LOULOU discussed with pt that insurance states household distance is 50feet, pt is walking double that with no assistance needed, pt will highly likely get denied SNF/TCU. LOULOU explained private pay costs at TCU. Both pt and Carmne agreeable to pt returning home with outpatient therapy. Pt requests hospital van to transport pt home. LOULOU updated physician and RN CM that pt will now be discharged home with outpatient therapy. LOULOU placed a call to Porsha with TCU and left message updating her pt is now returning home. LOULOU asked payroll secretary to schedule transportation home via hospital van. Plan: Home with outpatient therapy Jerri Snowden [employer] CHLORIDE OPERATOR, DROSSER
[2020-08-22] MEDS: Latanoprost 0.005% 1 Bottle 1 DRP RIGHT EYE (12:33)
[2020-08-22] MEDS: Potassium Chloride Oral Tablet 20 MEQ 40 MEQ PO (12:47)
--- NOTE | 2020-08-22 14:58 | PHA.DC.MR ---
Pharmacy Service has performed discharge medication reconciliation for this patient. The patient's discharge medication list was reviewed for discrepancies and discrepancies were resolved. Home Medications alfuzosin 10 mg PO BID 03/13/13 omeprazole 20 mg PO DAILY 03/13/13 selenium sulfide-menthol 118 ml TP QODAY 03/13/13 triamterene-hydrochlorothiazid 1 cap PO DAILY 03/13/13 atorvastatin 10 mg tablet 20 mg PO DAILY tab 02/09/19 brimonidine 0.15 % eye drops 1 drp RIGHT EYE BID ml 02/09/19 glucosamine sulfate 500 mg capsule 1,200 mg PO DAILY 02/09/19 latanoprost 0.005 % eye drops 1 drp RIGHT EYE BID ml 02/09/19 netarsudil 0.02 % eye drops 1 drp RIGHT EYE QPM 02/09/19 polyethylene glycol 3350 [Miralax] 17 g PO DAILY 08/01/20 potassium chloride 8 meq PO DAILY 08/01/20 Xarelto 10 mg PO DAILY@0600 30 Days #30 tab MDD 10mg 08/16/20 acetaminophen 1,000 mg PO Q8 PRN 14 Days #90 tab NS MDD 3000mg 08/16/20 oxycodone 5 - 10 mg PO Q4H PRN PRN 7 Days #84 tab NS MDD 40mg 08/16/20
== END 2020-08-22 14:53 | disposition home or self-care (01) ==
LOC: ED 10:11 → MS3 10:38
PROVIDERS: Admitting Provider Family Medicine; Emergency Provider Emergency Medicine; PCP Internal Medicine; Visit Provider Internal Medicine
DX: R11.2 Nausea with vomiting, unspecified (principal); T40.2X5A Adverse effect of other opioids, initial encounter; E87.6 Hypokalemia; K21.9 Gastro-esophageal reflux disease without esophagitis; M19.90 Unspecified osteoarthritis, unspecified site; N40.0 Benign prostatic hyperplasia without lower urinary tract symptoms; E78.5 Hyperlipidemia, unspecified; I10 Essential (primary) hypertension; G25.81 Restless legs syndrome; E04.1 Nontoxic single thyroid nodule; H40.9 Unspecified glaucoma; Z79.899 Other long term (current) drug therapy; Z96.652 Presence of left artificial knee joint; Z79.01 Long term (current) use of anticoagulants
CPT/HCPCS: 36415; 71045; 80048; 80076; 81001; 83690; 83735; 84100; 84484; 85025; 93005; 96361; 96374; 97110; 97116; 97161; 97166; 97530; 97535; 99218; 99285; J7030; A4216; G0378; J2405

== ENCOUNTER 2020-11-14 12:09 | Inpatient (IN) | payer MEDICARE, SELFPAY ==
[2020-11-14 12:10] VITALS: BP 166/78; PULSE 93; RESP 20; TEMP 36.3; BMI 27.7
--- NOTE | 2020-11-14 14:28 | RAD_ITS ---
STUDY: X-RAY - LEFT RADIUS AND ULNA REASON FOR EXAM: Male, 85 years old. Dog bite TECHNIQUE: 2 view(s) of the forearm. COMPARISON: None. FINDINGS: Soft tissue swelling overlying the proximal forearm. No radiopaque foreign body is seen. Normal visualized radius. Normal visualized ulna. RAD/Forearm 2 Views IMPRESSION: Soft tissue swelling overlying the proximal forearm. No radiopaque foreign body is seen. Electronically Signed: Adan House MD at 15:42 EDT , Service support ,
[2020-11-14 14:38] LABS: Erythrocyte Sedimentation Rate 9 mm/hr (0-20)
[2020-11-14 14:40] LABS: Absolute Lymphocyte Count 0.73 X10^3/uL (0.83-4.51); Absolute Neutrophil Count 7.6 X10^3/uL (2.0-7.7); Basophil# 0.03 X10^3/uL; Basophil% 0.3 % (0-1); Eosinophil# 0.02 X10^3/uL; Eosinophils% 0.2 % (0-5); Hematocrit 37.2 % (40-54); Hemoglobin 12.3 g/dL (13.0-16.5); Lymphocyte # 0.73 X10^3/ul (0.83-4.51); Lymphocyte % 7.8 % (19-41); Mean Corp Hgb Conc 33.1 g/dL (32-36); Mean Corpuscular Hgb 29.4 pg (27.0-32.0); Mean Corpuscular Volume 88.8 fL (80-94); Mean Platelet Vol. 9.9 fl (6.2-12.0); Monocyte# 0.91 X10^3/uL; Monocyte% 9.8 % (0-10); NRBC Flagged by Analyzer 0 % (0-5); Neutrophil # 7.59 X10^3/uL (2.7-7.7); Neutrophil % 81.6 % (47-70); Platelet Count 168 K/mm3 (150-450); RBC Distribution Width CV 13.5 % (11.6-14.6); RBC Distribution Width SD 43.7 fl (35.1-43.9); Red Blood Count 4.19 M/mm3 (4.6-6.2); White Blood Count 9.3 K/mm3 (4.4-11.0)
[2020-11-14 14:48] LABS: ALB/GLOB Ratio 0.9 RATIO (0.9-2.4); AST(SGOT) 13 U/L (15-37); Alanine Aminotransfer ALT/SGPT 21 U/L (16-61); Albumin, Serum 3.3 g/dL (3.2-5.0); Alkaline Phosphatase 103 U/L (45-117); Anion Gap 3 (5-15); BUN 13 mg/dL (7-18); Calcium,Total 8.8 mg/dL (8.5-10.1); Chloride 103 mmol/L (98-107); Creatinine, Serum 0.72 mg/dL (0.70-1.30); EST Glomerular Filtration Rate 111 mL/min (>60); Est Glom Filt Rate - Afr Amer 134 mL/min (>60); Estimated Creatinine Clearance 63.25 ml/min; Globulin 3.5 g/dL (2.2-4.2); Glucose 101 mg/dL (74-106); Potassium 3.3 mmol/L (3.5-5.1); Protein, Total 6.8 g/dL (6.4-8.2); Sodium Level 137 mmol/L (136-145)
--- NOTE | 2020-11-14 14:54 | EX.ED.VISEXT ---
HPI History of Present Illness Chief Complaint: Bite Narrative Narrative: Patient presents with dog bite to the left forearm. He states he was bitten yesterday by his own dog while cleaning his ears. Patient states that he had 2 puncture wounds on the left forearm and over the course of the last 24 hours it has become very erythematous and spreading up the left forearm. Patient has not had any systemic signs or symptoms. Patient states that his left forearm is mildly painful. Patient states that his dog musicians are up-to-date. His last tetanus is within the last couple of years. Patient has had 3 doses of Augmentin and states it is still worsening. ROS ROS ED Constitutional Constitutional ED: Denies chills, fever(s) or sweats ENT ENT ED: Denies rhinorrhea or sore throat Cardiovascular Cardiovascular: Denies chest pain or palpitations Respiratory/Chest Respiratory/Chest: Denies cough or dyspnea Gastrointestinal Gastrointestinal: Denies abdominal pain, nausea or vomiting Genitourinary Genitourinary ED: Denies dysuria or hematuria Musculoskeletal Musculoskeletal: Reports other Details: Left forearm pain ; Denies myalgias Integumentary Reports other Details: Erythematous rash to left forearm ; Denies abscess Neurologic Neurologic: Denies headache(s) or paresthesias PFSH PFS Medical History Abdominal pain Alcohol use Anemia Arthritis Back pain Biliary dyskinesia Biliary dyskinesia BPH (benign prostatic hyperplasia) Cancer Constipation Difficulty swallowing Elevated PSA Erectile dysfunction Gastric reflux GERD (gastroesophageal reflux disease) Glaucoma history basal cell, squamous cell of the skin History of edema History of GI bleed History of pain when walking History of stress test History of ulceration Hyperlipidemia Hypertension Non-smoker Prostate disease Restless legs Thyroid disease Thyroid nodule Wears glasses Home Medications alfuzosin 10 mg PO BID 03/13/13 [History Last Taken 11/14/20] omeprazole 20 mg PO DAILY 03/13/13 [History Last Taken 11/14/20] selenium sulfide-menthol 118 ml TP QODAY 03/13/13 [History Last Taken 11/13/20] triamterene-hydrochlorothiazid 1 cap PO DAILY 03/13/13 [History Last Taken 11/14/20] brimonidine 0.15 % eye drops 1 drp RIGHT EYE BID ml 02/09/19 [History Last Taken 11/14/20] latanoprost 0.005 % eye drops 1 drp RIGHT EYE DAILY@1200 ml 02/09/19 [History Last Taken 11/13/20] netarsudil 0.02 % eye drops 1 drp RIGHT EYE QPM 02/09/19 [History Last Taken 11/13/20] polyethylene glycol 3350 [Miralax] 17 g PO DAILY 08/01/20 [History Last Taken 11/13/20] potassium chloride 8 meq PO BID 08/01/20 [History Last Taken 11/14/20] acetaminophen 1,000 mg PO Q8 PRN 14 Days #90 tab NS 08/16/20 [Rx Last Taken 11/13/20] atorvastatin 20 mg PO DAILY 11/14/20 [History Last Taken 11/14/20] peg 400-propylene glycol [Systane (propylene glycol)] 1 drp EACH EYE DAILY PRN 11/14/20 [History Last Taken 11/14/20] Allergy/AdvReac Type Severity Reaction Status Date / Time chlorpheniramine Allergy Mild GI upset Ver[facility] 08/15/20 05[facility] dextromethorphan Allergy Mild GI upset Verified 08/15/20 05:38 [facility] doxycycline Allergy PT UNSURE Verified 08/15/20 05:38 OF REACTION oxycodone AdvReac Intermediate Nausea/Vom/ Verified 08/22/20 08:25 Diarrhea finasteride [From Proscar] AdvReac Mild impotence Verified 08/15/20 05:38 aspirin AdvReac Other Verified 08/15/20 05:38 tamsulosin HCl [From Flomax] AdvReac Other Verified 08/15/20 05:38 Family History Mother Hypertension Thyroid disorder Brother Hypertension Cancer skin cancer Sister Hypertension Cancer skin cancer Surgical History history of basal cell and squamous cell removals History of bilateral cataract extraction History of esophagogastroduodenoscopy (EGD) 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 Hx of colonoscopy Social History Smoking Status: Never smoker alcohol intake: current alcohol intake frequency: a few times a month substance use type: does not use EXAM Physical Exam Const Vital Signs: 11/14/20 12:10 Temperature 97.4 F L Temperature Source Temporal Pulse Rate 93 Respiratory Rate 20 H Blood Pressure 166/78 H Blood Pressure Mean 107 Positive well nourished General Appearance ED: NAD HEENT Reports moist mucous membranes normocephalic and atraumatic Resp normal respiratory effort and clear to auscultation bilaterally Cardio regular rate and regular rhythm Extremity Extremity Narrative: Erythematous rash with increased warmth of the left volar forearm extending up into the antecubital fossa. There are 2 puncture wounds on the medial and mid volar aspect of the forearm. No crepitance is palpated. Neuro oriented x3 Sensorium / Orientation: alert Psych mental status grossly normal and thought process normal Skin Skin Narrative: Rash as described above MDM MDM MDM Narrative Medical decision making narrative: Patient presenting With worsening cellulitis of the left forearm after dog bite which occurred yesterday. He is taken 3 doses of Augmentin and is now spreading all over his forearm and to the left Antecubital fossa.Patient does have some lymphangitic streaking up the left upper arm. Patient has had no systemic signs or symptoms. I did obtain imaging of the left forearm which shows no radiopaque foreign bodies and does not show any subcutaneous emphysema. CBC shows no leukocytosis. H&H are stable. Platelets are normal. Renal function is also normal. Potassium slightly low at 3.3. CRP is elevated at 42. Given patient has failed outpatient antibiotics I will start him on Rocephin and Flagyl. Patient will be admitted to the hospital for IV antibiotic treatment. She is remained clinically stable in the ER. Tetanus is up-to-date. His dog's vaccines are up-to-date. He is stable on admission. Impression: 1. Dog bite 2. Cellulitis 3. Failure of outpatient antibiotics Lab Data Labs: Laboratory Results - last 24 hr 11/14/20 11/14/20 14:20 14:20 WBC 9.3 RBC 4.19 L Hgb 12.3 L Hct 37.2 L MCV 88.8 MCH 29.4 MCHC 33.1 RDW Std Deviation 43.7 RDW Coeff of Gene 13.5 Plt Count 168 MPV 9.9 Immature Gran % (Auto) 0.300 Neut % (Auto) 81.6 H Lymph % (Auto) 7.8 L [place] % (Auto) 9.8 Eos % (Auto) 0.2 Baso % (Auto) 0.3 Absolute Neuts (auto) 7.6 Absolute Lymphs (auto) 0.73 L Nucleated RBC % 0 ESR 9 Sodium 137 Potassium 3.3 L Chloride 103 Carbon Dioxide 31.0 Anion Gap 3 L BUN 13 Creatinine 0.72 Estim Creat Clear Calc 63.25 Est GFR (MDRD) Af Amer 134 Est GFR (MDRD) Non-Af 111 BUN/Creatinine Ratio 18.0 Glucose 101 Calcium 8.8 Total Bilirubin 1.00 AST 13 L ALT 21 Alkaline Phosphatase 103 C-React Prot Ext Range 42.00 H Total Protein 6.8 Albumin 3.3 Globulin 3.5 Albumin/Globulin Ratio 0.9 Radiography Diagnostic Testing: Radiology Impression Forearm X-Ray 11/14/20 14:28 IMPRESSION: Soft tissue swelling overlying the proximal forearm. No radiopaque foreign body is seen. Electronically Signed: Adan House MD at 15:42 EDT , Service support , Discharge Plan Triage Chief Complaint: Bite ED Provider: Angel Patterson Dx/Rx/DC Orders Primary Care Provider: Bertin Ragland
[2020-11-14] MEDS: Ceftriaxone 1 GM/50 ML BAG IV (15:36)
[2020-11-14] MEDS: metroNIDAZOLE 500 MG/100 ML BAG 100 MG IV (16:25)
--- NOTE | 2020-11-14 16:46 | HP.PCM.HOS_ITS ---
HPI - General HPI Narrative NONA RAYMOND, is a 85 M with an extensive past medical history as outlined who presents via the ED on 11/14/2020 with a complaint of redness to the left forearm. Patient was bitten on the day before presentation by his dog while she was cleaning the dog's ears. He had 2 puncture wounds on the left inner forearm. He went immediately to the urgent care and was prescribed Augmentin. He started taking the Augmentin yesterday morning. However he noted that the redness had extended up his left forearm towards his axilla with streaking as well as increased tenderness when he came into the ED. He denied any fever or chills and denied any nausea vomiting or diarrhea or any purulent discharge from the site of the dog bite. Review systems otherwise negative. He had had 3 doses of Augmentin at the time of review. Vitals in the ED were blood pressure of 166/78, pulse rate of 93, respiratory rate of 20 and temperature of 91.4 Fahrenheit. CBC showed WBC of 9.3 with hemoglobin of 14 and platelets of 168. Chemistry was significant for potassium of 3.3 but was otherwise normal. COVID- 19 antigen test done was negative. He has been admitted to be managed for cellulitis of the left upper extremity due to dog bite. [facility] Medical History Abdominal pain Alcohol use Anemia Arthritis Back pain Biliary dyskinesia Biliary dyskinesia BPH (benign prostatic hyperplasia) Cancer Constipation Difficulty swallowing Elevated PSA Erectile dysfunction Gastric reflux GERD (gastroesophageal reflux disease) Glaucoma history basal cell, squamous cell of the skin History of edema History of GI bleed History of pain when walking History of stress test History of ulceration Hyperlipidemia Hypertension Non-smoker Prostate disease Restless legs Thyroid disease Thyroid nodule Wears glasses Home Medications alfuzosin 10 mg PO BID 03/13/13 [History Last Taken Unknown] omeprazole 20 mg PO DAILY 03/13/13 [History Last Taken Unknown] selenium sulfide-menthol 118 ml TP QODAY 03/13/13 [History Last Taken Unknown] triamterene-hydrochlorothiazid 1 cap PO DAILY 03/13/13 [History Last Taken Unknown] brimonidine 0.15 % eye drops 1 drp RIGHT EYE BID ml 02/09/19 [History Last Taken Unknown] latanoprost 0.005 % eye drops 1 drp RIGHT EYE BID ml 02/09/19 [History Last Taken Unknown] netarsudil 0.02 % eye drops 1 drp RIGHT EYE QPM 02/09/19 [History Last Taken Unknown] polyethylene glycol 3350 [Miralax] 17 g PO DAILY 08/01/20 [History Last Taken Unknown] potassium chloride 8 meq PO DAILY 08/01/20 [History Last Taken Unknown] acetaminophen 1,000 mg PO Q8 PRN 14 Days #90 tab NS MDD 3000mg 08/16/20 [Rx Last Taken Unknown] atorvastatin 20 mg PO DAILY 11/14/20 [History Last Taken 11/14/20] peg 400-propylene glycol [Systane (propylene glycol)] 1 drp EACH EYE DAILY PRN 11/14/20 [History Last Taken 11/14/20] Allergy/AdvReac Type Severity Reaction Status Date / Time chlorpheniramine Allergy Mild GI upset Verified 08/15/20 05:38 [From [facility]] dextromethorphan Allergy Mild GI upset Verified 08/15/20 05:38 [From [facility]] doxycycline Allergy PT UNSURE Verified 08/15/20 05:38 OF REACTION oxycodone AdvReac Intermediate Nausea/Vom/ Verified 08/22/20 08:25 Diarrhea finasteride [From Proscar] AdvReac Mild impotence Verified 08/15/20 05:38 aspirin AdvReac Other Verified 08/15/20 05:38 tamsulosin HCl [From Flomax] AdvReac Other Verified 08/15/20 05:38 Family History Mother Hypertension Thyroid disorder Brother Hypertension Cancer skin cancer Sister Hypertension Cancer skin cancer Surgical History history of basal cell and squamous cell removals History of bilateral cataract extraction History of esophagogastroduodenoscopy (EGD) 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 Hx of colonoscopy Social History Smoking Status: Never smoker alcohol intake: current alcohol intake frequency: a few times a month substance use type: does not use ROS Constitutional Constitutional: Denies anorexia, chills, fatigue, fever(s), malaise or weakness Eyes Eyes: Denies change in vision ENT HEENT: Denies dysphagia, headache(s), hearing loss, nasal congestion or nasal discharge Cardiovascular Cardiovascular: Denies chest pain, dyspnea on exertion, edema, lightheadedness, orthopnea or palpitations Respiratory/Chest Respiratory/Chest: Denies cough, dyspnea, productive cough, shortness of breath at rest or shortness of breath with exertion Gastrointestinal Gastrointestinal: Denies abdominal pain, diarrhea, hematemesis, nausea or vomiting Genitourinary Genitourinary: Denies burning urination or dysuria Musculoskeletal Musculoskeletal: Denies arthralgias or joint pain Neurologic Neurologic: Denies confusion, dizziness, focal weakness, headache(s), numbness, seizure-like activity or seizures Psychiatric Psychiatric: Denies anxiety or depression Endocrine Endocrinology: Denies change in body appearance Hematologic/Lymphatic Hematologic/Lymphatic: Denies anemia Vital Signs Vital Signs Vital Signs: 11/14/20 12:10 Temperature 97.4 F L Temperature Source Temporal Pulse Rate 93 Respiratory Rate 20 H Blood Pressure 166/78 H Blood Pressure Mean 107 Weight Weight: 210 lb Body Mass Index (BMI) 27.7 Physical Exam Const alert, oriented x3 and well nourished General Appearance: cooperative HEENT normocephalic, head/scalp atraumatic, hearing grossly normal bilaterally and moist oral mucous membranes Eyes PERRL, EOMs intact bilaterally and conjunctivae normal Neck no lymphadenopathy, supple and no JVD Resp normal respiratory effort, no retractions, no use of accessory muscles and clear to auscultation bilaterally Cardio regular rate, regular rhythm, S1 normal heart sound, S2 normal heart sound and no murmurs GI normal to inspection, nondistended, normoactive bowel sounds, soft to palpation, non-tender and non-distended Extremity normal to inspection, full ROM and no clubbing, cyanosis or edema Peripheral Pulses: Yes pulses 2+ throughout Skin Skin Narrative: erythema over left inner forearm, extending up to the left axilla, with 2 superficial puncture wounds over left inner forearm, with minimal discharge. Mildly warm and tender to touch Neuro oriented x3, CN's II-XII intact bilaterally and moves all extremities Sensorium / Orientation: awake and alert Psych affect normal Results Lab / Micro Data Result Diagrams: 11/14/20 14:20 11/14/20 14:20 Labs: Laboratory Results - last 24 hr 11/14/20 14:20: WBC 9.3, RBC 4.19 L, Hgb 12.3 L, Hct 37.2 L, MCV 88.8, MCH 29.4, MCHC 33.1, RDW Std Deviation 43.7, RDW Coeff of Gene 13.5, Plt Count 168, MPV 9.9, Immature Gran % (Auto) 0.300, Neut % (Auto) 81.6 H, Lymph % (Auto) 7.8 L, [place] % (Auto) 9.8, Eos % (Auto) 0.2, Baso % (Auto) 0.3, Absolute Neuts (auto) 7.6, Absolute Lymphs (auto) 0.73 L, Nucleated RBC % 0, ESR 9 11/14/20 14:20: Sodium 137, Potassium 3.3 L, Chloride 103, Carbon Dioxide 31.0, Anion Gap 3 L, BUN 13, Creatinine 0.72, Estim Creat Clear Calc 63.25, Est GFR (MDRD) Af Amer 134, Est GFR (MDRD) Non-Af 111, BUN/Creatinine Ratio 18.0, Glucose 101, Calcium 8.8, Total Bilirubin 1.00, AST 13 L, ALT 21, Alkaline Phosphatase 103, C-React Prot Ext Range 42.00 H, Total Protein 6.8, Albumin 3.3, Globulin 3.5, Albumin/Globulin Ratio 0.9 Micro: Microbiology 11/14/20 15:37 Nasal Secretion SARS-CoV-2 Antigen (Rapid) - Final Radiology Impression Forearm X-Ray 11/14/20 14:28 IMPRESSION: Soft tissue swelling overlying the proximal forearm. No radiopaque foreign body is seen. Electronically Signed: Adan House MD at 15:42 EDT , Service support , Assessment & Plan Assessment/Plan (1) Cellulitis: PLAN: #Cellulitis of the LUE due to dog bite * admit to med surg * get blood cultures * start on IV unasyn * PO tylenol for pain * hydrate gently with IVF * cellulitic area outlined to monitor for spread * #Hypokalemia: K is 3.3. Will replace and trend #Hyperlipidemia: on statin #BPH: on alfuzosin. #Hypertension: on maxzide. DVT prophylaxis; lovenox Code status: full code * Patient counseled extensively about different types of CODE STATUS including full code, DNR CCA and DNR CCA. Patient elects to be full code. * Total [id number]-[id number] time 17 minutes. Charges/Coding Visit Charges Inpatient E&M: 66747 Init Hosp L3 Procedures Hospitalists Procedures: 18438 Advncd Care Plan 30 Min
[2020-11-14 17:13] VITALS: BP 168/76; PULSE 88; RESP 18; O2SAT 96
--- NOTE | 2020-11-14 17:21 | NURSING ---
MED SURG KORAM DOG BITE, CELLULITIS
[2020-11-14 17:38] VITALS: BP 162/81; PULSE 69; RESP 19; TEMP 37.2; O2SAT 96
[2020-11-14 18:36] VITALS: BMI 28.7
[2020-11-14 19:02] VITALS: BP 160/77; PULSE 95; RESP 18; TEMP 37.2; O2SAT 97
[2020-11-14] MEDS: 0.9% Saline Lock 10 ML Syringe IV (20:17)
[2020-11-14] MEDS: 0.9% Normal Saline 1,000 ML 125 ML IV (20:17)
--- NOTE | 2020-11-14 22:17 | PCS.PANDOC ---
PANDEMIC DOCUMENTATION INITIATED: Date: 11/14/20 Time: 1899
[2020-11-15 01:13] VITALS: BP 158/80; PULSE 82; RESP 18; TEMP 36.6; O2SAT 94
[2020-11-15 05:15] VITALS: BP 147/77; PULSE 80; RESP 18; TEMP 37.1; O2SAT 92
[2020-11-15 07:26] LABS: Absolute Neutrophil Count 6.1 X10^3/uL (2.0-7.7); Basophil# 0.02 X10^3/uL; Basophil% 0.3 % (0-1); Eosinophil# 0.04 X10^3/uL; Eosinophils% 0.5 % (0-5); Hematocrit 36.9 % (40-54); Hemoglobin 12.2 g/dL (13.0-16.5); Lymphocyte % 11.6 % (19-41); Mean Corp Hgb Conc 33.1 g/dL (32-36); Mean Corpuscular Hgb 29.5 pg (27.0-32.0); Mean Corpuscular Volume 89.3 fL (80-94); Mean Platelet Vol. 10.3 fl (6.2-12.0); NRBC Flagged by Analyzer 0 % (0-5); Neutrophil # 6.05 X10^3/uL (2.7-7.7); Neutrophil % 78.2 % (47-70); Platelet Count 165 K/mm3 (150-450); RBC Distribution Width CV 13.5 % (11.6-14.6); Red Blood Count 4.13 M/mm3 (4.6-6.2); White Blood Count 7.7 K/mm3 (4.4-11.0)
[2020-11-15 07:50] VITALS: BP 145/68; PULSE 87; RESP 16; TEMP 37.2; O2SAT 94
[2020-11-15 07:50] LABS: Anion Gap 6 (5-15); BUN 9 mg/dL (7-18); BUN/Creat Ratio 19.1 RATIO (10-20); Calcium,Total 8.4 mg/dL (8.5-10.1); Chloride 106 mmol/L (98-107); Creatinine, Serum 0.47 mg/dL (0.70-1.30); EST Glomerular Filtration Rate 181 mL/min (>60); Est Glom Filt Rate - Afr Amer 219 mL/min (>60); Estimated Creatinine Clearance 61.43 ml/min; Glucose 96 mg/dL (74-106); Potassium 3.2 mmol/L (3.5-5.1); Sodium Level 140 mmol/L (136-145)
--- NOTE | 2020-11-15 10:00 | CASEMGMT ---
Social Work Note Per medical accounts receivable specialist questions, pt has completed HCPOA and LW and provided copies to [facility]. SW reviewed chart. Both HCPOA and LW are on file. SW printed off copies and placed on pt's chart. Jerri Snowden CAR CARDER, [employer]
[2020-11-15] MEDS: Triamterene 37.5MG/Hctz 25MG Capsule 1 CAP PO (10:54)
[2020-11-15] MEDS: 0.9% Saline Lock 10 ML Syringe IV ×2 (10:54→13:32)
[2020-11-15] MEDS: Pantoprazole Sodium 20 MG Tablet PO (10:54)
[2020-11-15] MEDS: Latanoprost 0.005% 1 Bottle 1 DRP RIGHT EYE (10:55)
[2020-11-15] MEDS: BRIMONIDINE 0.15% 5 ML Bottle 1 DRP RIGHT EYE ×2 (10:56→21:56)
[2020-11-15 13:33] VITALS: BP 129/59; PULSE 84; RESP 16; TEMP 36.9; O2SAT 98
--- NOTE | 2020-11-15 14:20 | CASEMGMT ---
TRAVIS EDDY Assessment: Face to Face with pt for initial transition planning/care coordination assessment. TRAVIS EDDY introduced self and role at [facility], pt voices understanding and consents to assessment. Pt is A/O x4 and answers all questions appropriately at this time. Pt lying in bed in no distress. Care providers, pharmacy, and demographics verified/updated. Admitting Dx:cellulitis of the LUE due to dog bite PCP:Obie Specialists: Jodi,ortho; Keyonna, ENT; Chris, pod; Yuriy, derm; Mayank for thyroid at [facility]; Alex who collaborates with Rosana at [facility] [place] at [facility] Preferred Pharmacy: [facility] Insurance: [employer] [place] [facility] Prescription Benefit: yes [employer] LW/HPOA: Pt has completed both, DPOA is Carmen Chase. LNOK: Carmen Chase, ; Magdi Chase, son who is internal medicine physician per pt report. Living Arrangements: Pt lives with in a two story house with 1 step up from the garage with grab bar. Pt is I in ADL's and denies concerns at home. Transportation: Pt drives self and denies concerns with transportation. DME/HHC/SNF: Pt has a transfer bench, hospital bed, handicapped accessible shower upstairs with a rail on one side of the steps to access, FWW and polar care. Pt states he is looking into putting grab bars in the basement. Pt denies skilled HHC, [facility] does send a nurse out once a year to assess pt. Pt denies SNF stay. Pt has Brenda Rodriguez PT from [facility] [place] come to his home weekly for privately paid therapy. Pt states no concerns with going home at time of dc. Pt states no further concerns/needs. CM to follow. Advised pt to ask CM if any further question/concerns/needs arise, voices understanding. Pt Goal: Home Plan: Home
--- NOTE | 2020-11-15 18:09 | PN.HOSP_ITS ---
Subjective Subjective Patient was seen and examined today, he states that his left arm redness and swelling is less today. Patient was admitted yesterday for cellulitis secondary to a dog bite on his left forearm. Objective Data Objective Data Vital Signs: Vital Signs Temp Pulse Resp BP Pulse Ox 98.5 F 84 16 129/59 H 98 11/15/20 13:33 11/15/20 13:33 11/15/20 13:33 11/15/20 13:33 11/15/20 13:33 Oxygen Delivery Method Room Air Weight: 98.2 kg Body Mass Index (BMI) 28.7 Intake & Output: Intake and Output for Last 24 Hours 11/13/20 11/14/20 11/15/20 23:59 23:59 23:59 Intake Total 262 / 662 2424.25 / 2424.25 Balance 262 / 662 2424.25 / 2424.25 Lab / Micro Data Result Diagrams: 11/15/20 06:50 11/15/20 06:50 Labs: Laboratory Results - last 24 hr 11/15/20 06:50: WBC 7.7, RBC 4.13 L, Hgb 12.2 L, Hct 36.9 L, MCV 89.3, MCH 29.5, MCHC 33.1, RDW Std Deviation 44.0 H, RDW Coeff of Gene 13.5, Plt Count 165, MPV 10.3, Immature Gran % (Auto) 0.400, Neut % (Auto) 78.2 H, Lymph % (Auto) 11.6 L, [place] % (Auto) 9.0, Eos % (Auto) 0.5, Baso % (Auto) 0.3, Absolute Neuts (auto) 6.1, Absolute Lymphs (auto) 0.90, Nucleated RBC % 0 11/15/20 06:50: Sodium 140, Potassium 3.2 L, Chloride 106, Carbon Dioxide 28.0, Anion Gap 6, BUN 9, Creatinine 0.47 L, Estim Creat Clear Calc 61.43, Est GFR (MDRD) Af Amer 219, Est GFR (MDRD) Non-Af 181, BUN/Creatinine Ratio 19.1, Glucose 96, Calcium 8.4 L Micro: Microbiology 11/15/20 11:40 Bite - Arm Gram Stain - Final 11/14/20 15:37 Nasal Secretion SARS-CoV-2 Antigen (Rapid) - Final Physical Exam Const alert, oriented x3, no apparent distress and healthy appearing General Appearance: cooperative, well kempt and well developed Orientation / Consciousness: awake, oriented to person, oriented to place and oriented to time HEENT normocephalic, head/scalp atraumatic and moist oral mucous membranes Head and Scalp: normocephalic Eyes PERRL, EOMs intact bilaterally and conjunctivae normal Neck nuchal rigidity, supple, no JVD, thyroid normal and no carotid bruits General: trachea midline Resp normal respiratory effort, no retractions, no use of accessory muscles and clear to auscultation bilaterally Auscultation: Negative for rales, rhonchi or wheezes Cardio regular rate, regular rhythm, no murmurs, no rub and no gallops GI normal to inspection, nondistended, normoactive bowel sounds, soft to palpation, non-tender and non-distended Extremity Extremity Narrative: There is generalized edema and redness over the left forearm extending into the left upper arm medially. The left forearm is mildly tender to palpation, the left forearm is not severely edematous. Skin Skin Narrative: Patient has redness of the left forearm extending into the proximal left upper arm General Skin Exam: no breakdown Neuro oriented x3, CN's II-XII intact bilaterally, no focal motor deficits and no sensory deficits noted Sensorium / Orientation: awake and alert Speech: speech normal Psych thought process normal and affect normal Assessment & Plan Assessment/Plan (1) Cellulitis: PLAN: 1. Left arm cellulitis secondary to dog bite-patient will continue on Unasyn, he appears to be responding to IV antibiotics. #2 BPH #3 glaucoma #4 hypokalemia-patient was given potassium supplementation #5 essential hypertension #6 hyperlipidemia-I have held the patient's cholesterol medication currently, I do not feel he needs to be on his statin while he is hospitalized Charges/Coding Visit Charges Inpatient E&M: 68216 Subs Hosp L2
[2020-11-15 20:19] VITALS: BP 163/89; PULSE 83; RESP 16; TEMP 36.9; O2SAT 97
[2020-11-15] MEDS: Acetaminophen 500 MG Tablet 1000 MG PO (20:27)
[2020-11-15] MEDS: NETARSUDIL MESYLATE 1 DRP OPHTHALMIC (21:57)
[2020-11-16 02:40] VITALS: BP 149/71; PULSE 73; RESP 16; TEMP 36.6; O2SAT 96
[2020-11-16 08:35] VITALS: BP 149/68; PULSE 65; RESP 15; TEMP 37; O2SAT 94
[2020-11-16] MEDS: Triamterene 37.5MG/Hctz 25MG Capsule 1 CAP PO (08:55)
[2020-11-16] MEDS: Pantoprazole Sodium 20 MG Tablet PO (08:56)
[2020-11-16] MEDS: BRIMONIDINE 0.15% 5 ML Bottle 1 DRP RIGHT EYE ×2 (09:13→21:41)
[2020-11-16] MEDS: Latanoprost 0.005% 1 Bottle 1 DRP RIGHT EYE (12:59)
[2020-11-16 14:30] VITALS: BP 137/69; PULSE 50; RESP 16; TEMP 36.7; O2SAT 98
--- NOTE | 2020-11-16 19:02 | PCM.PN.HOSP ---
Subjective Subjective Patient was seen and examined today, there is still some redness and induration of his left forearm and left upper arm, this is no worse than yesterday. Objective Data Objective Data Vital Signs: Vital Signs Temp Pulse Resp BP Pulse Ox 98.1 F 50 L 16 137/69 H 98 11/16/20 14:30 11/16/20 14:30 11/16/20 14:30 11/16/20 14:30 11/16/20 14:30 Oxygen Delivery Method Room Air Weight: 98.2 kg Body Mass Index (BMI) 28.7 Intake & Output: Intake and Output for Last 24 Hours 11/14/20 11/15/20 11/16/20 23:59 23:59 23:59 Intake Total 262 / 662 2936.25 / 2936.25 1722 / 1722 Balance 262 / 662 2936.25 / 2936.25 1722 / 1722 Lab / Micro Data Result Diagrams: 11/15/20 06:50 11/15/20 06:50 Micro: Microbiology 11/15/20 11:40 Bite - Arm Gram Stain - Final 11/15/20 11:40 Bite - Arm Wound Culture - Preliminary No growth-Final to follow 11/14/20 15:37 Nasal Secretion SARS-CoV-2 Antigen (Rapid) - Final Physical Exam Narrative alert, oriented x3, no apparent distress and healthy appearing General Appearance: cooperative, well kempt and well developed Orientation / Consciousness: awake, oriented to person, oriented to place and oriented to time HEENT normocephalic, head/scalp atraumatic and moist oral mucous membranes Head and Scalp: normocephalic Eyes PERRL, EOMs intact bilaterally and conjunctivae normal Neck nuchal rigidity, supple, no JVD, thyroid normal and no carotid bruits General: trachea midline Resp normal respiratory effort, no retractions, no use of accessory muscles and clear to auscultation bilaterally Auscultation: Negative for rales, rhonchi or wheezes Cardio regular rate, regular rhythm, no murmurs, no rub and no gallops GI normal to inspection, nondistended, normoactive bowel sounds, soft to palpation, non-tender and non-distended Extremity Extremity Narrative: There is generalized edema and redness over the left forearm extending into the left upper arm medially. The left forearm is mildly tender to palpation, the left forearm is not severely edematous. Skin Skin Narrative: Patient has redness of the left forearm extending into the proximal left upper arm General Skin Exam: no breakdown Neuro oriented x3, CN's II-XII intact bilaterally, no focal motor deficits and no sensory deficits noted Sensorium / Orientation: awake and alert Speech: speech normal Psych thought process normal and affect normal Assessment & Plan Assessment/Plan (1) Cellulitis: PLAN: 1. Left arm cellulitis secondary to dog bite-patient will continue on Unasyn, he appears to be responding to IV antibiotics. Patient will be reevaluated tomorrow morning. #2 BPH #3 glaucoma #4 hypokalemia-patient's BMP will be rechecked tomorrow #5 essential hypertension #6 hyperlipidemia-I have held the patient's cholesterol medication currently, I do not feel he needs to be on his statin while he is hospitalized Charges/Coding Visit Charges Inpatient E&M: 20312 Subs Hosp L2
[2020-11-16 21:37] VITALS: BP 154/67; PULSE 87; RESP 16; TEMP 36.8; O2SAT 93
[2020-11-16] MEDS: NETARSUDIL MESYLATE 1 DRP OPHTHALMIC (21:42)
[2020-11-16] MEDS: 0.9% Saline Lock 10 ML Syringe IV (21:44)
[2020-11-16] MEDS: Acetaminophen 500 MG Tablet 1000 MG PO (21:44)
[2020-11-17 05:21] VITALS: BP 150/74; PULSE 79; RESP 16; TEMP 36.7; O2SAT 94
[2020-11-17] MEDS: 0.9% Saline Lock 10 ML Syringe IV (05:33)
[2020-11-17] MEDS: Glycerin/Hypromellose/PEG400 15 ml Bottle 1 DRP EACH EYE (05:34)
[2020-11-17 08:01] LABS: Anion Gap 5 (5-15); BUN 11 mg/dL (7-18); BUN/Creat Ratio 20.1 RATIO (10-20); Calcium,Total 8.6 mg/dL (8.5-10.1); Chloride 106 mmol/L (98-107); Creatinine, Serum 0.55 mg/dL (0.70-1.30); EST Glomerular Filtration Rate 152 mL/min (>60); Est Glom Filt Rate - Afr Amer 184 mL/min (>60); Estimated Creatinine Clearance 61.43 ml/min; Glucose 94 mg/dL (74-106); Sodium Level 141 mmol/L (136-145)
[2020-11-17] MEDS: Triamterene 37.5MG/Hctz 25MG Capsule 1 CAP PO (08:47)
[2020-11-17] MEDS: Pantoprazole Sodium 20 MG Tablet PO (08:47)
[2020-11-17] MEDS: BRIMONIDINE 0.15% 5 ML Bottle 1 DRP RIGHT EYE (08:54)
[2020-11-17 10:00] VITALS: BP 132/75; PULSE 84; RESP 14; TEMP 36.6; O2SAT 98
[2020-11-17 13:30] VITALS: BP 119/60; PULSE 79; RESP 24; TEMP 36.4
--- NOTE | 2020-11-17 15:40 | WOUNDNOTE ---
Pt had been up ambulating in the halls independently. pt states he awaiting doctor to see him. the redness to the left arm has extended slightly past the skin markings.
--- NOTE | 2020-11-17 15:42 | PCM.CONS.GEN ---
Assessment & Plan Assessment/Plan (1) Cellulitis: PLAN: LUE cellulitis s/p dog bite. Improved. On unasyn. Ok for home with 5-7 more days augmentin. Will follow as needed, thank you, d/w primary team HPI Consult Data Date of Consult: 11/17/20 HPI Narrative HPI Narrative: NONA RAYMOND, is a 85 M who presented after bit on L forearm by his dog on 11/14. Washed with soap and water. Dog up to date on shots. Went to urgent care, wound cleaned, given augmentin. Redness and pain and some drainage. No fever. Up to date on tetanus. Went back, sent to ED, admitted on unasyn. No drainage, pain improved, redness stable. Has had covid vaccine. Full ROS performed and neg except as noted above. [facility] Medical History Abdominal pain Alcohol use Anemia Arthritis Back pain Biliary dyskinesia Biliary dyskinesia BPH (benign prostatic hyperplasia) Cancer Constipation Difficulty swallowing Elevated PSA Erectile dysfunction Gastric reflux GERD (gastroesophageal reflux disease) Glaucoma history basal cell, squamous cell of the skin History of edema History of GI bleed History of pain when walking History of stress test History of ulceration Hyperlipidemia Hypertension Non-smoker Prostate disease Restless legs Thyroid disease Thyroid nodule Wears glasses Home Medications alfuzosin 10 mg PO BID 03/13/13 [History Last Taken 11/14/20] omeprazole 20 mg PO DAILY 03/13/13 [History Last Taken 11/14/20] selenium sulfide-menthol 118 ml TP QODAY 03/13/13 [History Last Taken 11/13/20] triamterene-hydrochlorothiazid 1 cap PO DAILY 03/13/13 [History Last Taken 11/14/20] brimonidine 0.15 % eye drops 1 drp RIGHT EYE BID ml 02/09/19 [History Last Taken 11/14/20] latanoprost 0.005 % eye drops 1 drp RIGHT EYE DAILY@1200 ml 02/09/19 [History Last Taken 11/13/20] netarsudil 0.02 % eye drops 1 drp RIGHT EYE QPM 02/09/19 [History Last Taken 11/13/20] polyethylene glycol 3350 [Miralax] 17 g PO DAILY 08/01/20 [History Last Taken 11/13/20] potassium chloride 8 meq PO BID 08/01/20 [History Last Taken 11/14/20] acetaminophen 1,000 mg PO Q8 PRN 14 Days #90 tab NS 08/16/20 [Rx Last Taken 11/13/20] atorvastatin 20 mg PO DAILY 11/14/20 [History Last Taken 11/14/20] peg 400-propylene glycol [Systane (propylene glycol)] 1 drp EACH EYE DAILY PRN 11/14/20 [History Last Taken 11/14/20] Allergy/AdvReac Type Severity Reaction Status Date / Time chlorpheniramine Allergy Mild GI upset Verified 08/15/20 05:38 [From [facility]] dextromethorphan Allergy Mild GI upset Verified 08/15/20 05:38 [From [facility]] doxycycline Allergy PT UNSURE Verified 08/15/20 05:38 OF REACTION oxycodone AdvReac Intermediate Nausea/Vom/ Verified 08/22/20 08:25 Diarrhea finasteride [From Proscar] AdvReac Mild impotence Verified 08/15/20 05:38 aspirin AdvReac Other Verified 08/15/20 05:38 tamsulosin HCl [From Flomax] AdvReac Other Verified 08/15/20 05:38 Family History Mother Hypertension Thyroid disorder Brother Hypertension Cancer skin cancer Sister Hypertension Cancer skin cancer Surgical History history of basal cell and squamous cell removals History of bilateral cataract extraction History of esophagogastroduodenoscopy (EGD) 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 Hx of colonoscopy Social History Smoking Status: Never smoker alcohol intake: current alcohol intake frequency: a few times a month substance use type: does not use Physical Exam Const alert, oriented x3 and no apparent distress General Appearance: cooperative Exam Limitations: no limitations HEENT normocephalic and head/scalp atraumatic Eyes PERRL and EOMs intact bilaterally Neck supple Resp normal air movement and clear to auscultation bilaterally Cardio regular rate and regular rhythm GI normal to inspection, nondistended, normoactive bowel sounds Extremity no clubbing, cyanosis or edema Skin Skin Narrative: L forearm mild redness, no induration or purulence Neuro CN's II-XII intact bilaterally Lab / Micro Data Result Diagrams: 11/15/20 06:50 11/17/20 06:25 Labs: Laboratory Results - last 24 hr 11/17/20 06:25: Sodium 141, Potassium 3.0 L, Chloride 106, Carbon Dioxide 30.0, Anion Gap 5, BUN 11, Creatinine 0.55 L, Estim Creat Clear Calc 61.43, Est GFR (MDRD) Af Amer 184, Est GFR (MDRD) Non-Af 152, BUN/Creatinine Ratio 20.1 H, Glucose 94, Calcium 8.6 Micro: Microbiology 11/15/20 11:40 Bite - Arm Gram Stain - Final 11/15/20 11:40 Bite - Arm Wound Culture - Preliminary No growth-Final to follow
[2020-11-17] MEDS: Potassium Chloride Oral Tablet 20 MEQ 40 MEQ PO (16:05)
--- NOTE | 2020-11-17 16:13 | PCM.DC ---
Discharge Instructions Diet Discharge Diet: No restrictions Activity Discharge Activity: Return to Normal Activity Weight Bearing Status: Full weight bearing Dressing / Incision Call your doctor if your incision/area has: Increased Pain/ Swelling and Foul Smelling Discharge Call your doctor if you observe: Fever of 101 or Higher Follow Up Care Test Results: Test results from this visit will be discussed in further detail at your follow-up appointment, if applicable. Discharge Plan Admission Admit Date/Time: 11/14/20 16:42 Primary Reason for Your Visit: cellulitis of the left arm Attending Provider: Billy Coy Primary Care Provider: Bertin Ragland Discharge Orders/Prescriptions Prescriptions: New lisinopril 20 mg tablet 20 mg PO DAILY Qty: 30 RF: 0 Continued brimonidine 0.15 % drops 1 drp RIGHT EYE BID RF: 0 latanoprost 0.005 % drops 1 drp RIGHT EYE DAILY@1200 RF: 0 Rhopressa 0.02 % drops 1 drp RIGHT EYE QPM RF: 0 omeprazole 20 MG capsule 20 mg PO DAILY RF: 0 alfuzosin 10 MG tablet 10 mg PO BID RF: 0 selenium sulfide-menthol 118 ML suspension 118 ml TP QODAY RF: 0 polyethylene glycol 3350 [Miralax] 17 gram Powder In Packet 17 g PO DAILY RF: 0 acetaminophen 500 mg Tablet 1,000 mg PO Q8 PRN (Reason: pain) 14 Days Qty: 90 RF: 0 atorvastatin 20 mg tablet 20 mg PO DAILY RF: 0 Systane (propylene glycol) 0.4-0.3 % Drops 1 drp EACH EYE DAILY PRN (Reason: Dry Eye(S)) RF: 0 Discontinued triamterene-hydrochlorothiazid 1 CAP capsule 1 cap PO DAILY RF: 0 potassium chloride 8 mEq Capsule, Extended Release 8 meq PO BID RF: 0 Referrals / Follow Up: Bertin Ragland MD [Primary Care Provider] - Within 2 Weeks Disposition Disposition (needs filled in before D/C Order can be placed): Home, Self Care
--- NOTE | 2020-11-17 16:56 | NURSING ---
Reviewed discharge orders with patient. pt denies questions or concerns.
--- NOTE | 2020-11-17 19:40 | DS.PCM_ITS ---
Providers Date of Admission: 11/14/20 Date of Discharge: 11/17/20 Primary Care Physician: Dr. Bertin Ragland MD Reason For Visit: CELLULITIS OF THE LUE DUE TO DOGBITE Diagnosis Discharge Diagnosis (1) Cellulitis: Status: Acute Code(s): L03.90 - Cellulitis, unspecified Plan: 1. Left arm cellulitis secondary to dog bite #2 BPH #3 glaucoma #4 hypokalemia secondary to diuretic medications #5 essential hypertension #6 hyperlipidemia Medications at Discharge Home Medications alfuzosin 10 mg PO BID 03/13/13 omeprazole 20 mg PO DAILY 03/13/13 selenium sulfide-menthol 118 ml TP QODAY 03/13/13 brimonidine 0.15 % eye drops 1 drp RIGHT EYE BID ml 02/09/19 latanoprost 0.005 % eye drops 1 drp RIGHT EYE DAILY@1200 ml 02/09/19 netarsudil 0.02 % eye drops 1 drp RIGHT EYE QPM 02/09/19 polyethylene glycol 3350 [Miralax] 17 g PO DAILY 08/01/20 acetaminophen 1,000 mg PO Q8 PRN 14 Days #90 tab NS 08/16/20 Systane (propylene glycol) 1 drp EACH EYE DAILY PRN 11/14/20 atorvastatin 20 mg PO DAILY 11/14/20 lisinopril 20 mg PO DAILY #30 tab 11/17/20 Hospital Course Operations None Procedures None Summary of Care Provided Minutes Spent on Discharge: 32 Hospital Course: Patient is an 85-year-old white male was seen in the emergency room with complaints of swelling and redness of his left forearm, extending into his left upper arm. Patient had been bitten by his family dog the day before, he had sought medical attention was placed on oral antibiotics but felt that his left arm was becoming worse. Patient came to the emergency room at [facility] for evaluation. Patient's lab revealed a normal white blood cell count and the patient was afebrile. Patient was admitted to [place] [id number] and placed on IV Unasyn, this examiner felt that the patient's left arm edema and redness was improving but the patient requested a consultation from infectious diseases who felt that the patient was on appropriate antibiotic coverage and that he could be discharged home on 11/17/20. Patient was seen and examined on 11/17/20:alert, oriented x3, no apparent distress and healthy appearing General Appearance: cooperative, well kempt and well developed Orientation / Consciousness: awake, oriented to person, oriented to place and oriented to time HEENT normocephalic, head/scalp atraumatic and moist oral mucous membranes Head and Scalp: normocephalic Eyes PERRL, EOMs intact bilaterally and conjunctivae normal Neck nuchal rigidity, supple, no JVD, thyroid normal and no carotid bruits General: trachea midline Resp normal respiratory effort, no retractions, no use of accessory muscles and clear to auscultation bilaterally Auscultation: Negative for rales, rhonchi or wheezes Cardio regular rate, regular rhythm, no murmurs, no rub and no gallops GI normal to inspection, nondistended, normoactive bowel sounds, soft to palpation, non-tender and non-distended Extremity Extremity Narrative: There is generalized edema and redness over the left forearm extending into the left upper arm medially. The left forearm is mildly tender to palpation, the left forearm is not severely edematous. Skin Skin Narrative: Patient has redness of the left forearm extending into the proximal left upper arm General Skin Exam: no breakdown Neuro oriented x3, CN's II-XII intact bilaterally, no focal motor deficits and no sensory deficits noted Sensorium / Orientation: awake and alert Speech: speech normal Psych thought process normal and affect normal Patient was felt to be stable for discharge on 11/17/20 in stable condition. Weight / BMI Weight Weight: 98.2 kg Body Mass Index (BMI) 28.7 ABG / Lab / Microbiology Data Result Diagrams: 11/15/20 06:50 11/17/20 06:25 Laboratory: Laboratory Results - last 24 hr 11/17/20 06:25: Sodium 141, Potassium 3.0 L, Chloride 106, Carbon Dioxide 30.0, Anion Gap 5, BUN 11, Creatinine 0.55 L, Estim Creat Clear Calc 61.43, Est GFR (MDRD) Af Amer 184, Est GFR (MDRD) Non-Af 152, BUN/Creatinine Ratio 20.1 H, Glucose 94, Calcium 8.6 Microbiology: Microbiology 11/15/20 11:40 Bite - Arm Gram Stain - Final 11/15/20 11:40 Bite - Arm Wound Culture - Preliminary No growth-Final to follow 11/14/20 15:37 Nasal Secretion SARS-CoV-2 Antigen (Rapid) - Final D/C Instructions Discharge Diet: No restrictions Weight Bearing Status: Full weight bearing Call your doctor if your incision/area has: Increased Pain/ Swelling and Foul Smelling Discharge Call your doctor if you observe: Fever of 101 or Higher Meaningful Use Info Meaningful Use Diagnoses (Choose all that apply): None applicable Discharge Plan Admission Admit Date/Time: 11/14/20 16:42 Primary Reason for Your Visit: cellulitis of the left arm Attending Provider: Billy Coy Primary Care Provider: Bertin Ragland Discharge Orders/Prescriptions Prescriptions: New lisinopril 20 mg tablet 20 mg PO DAILY Qty: 30 RF: 0 Continued brimonidine 0.15 % drops 1 drp RIGHT EYE BID RF: 0 latanoprost 0.005 % drops 1 drp RIGHT EYE DAILY@1200 RF: 0 Rhopressa 0.02 % drops 1 drp RIGHT EYE QPM RF: 0 omeprazole 20 MG capsule 20 mg PO DAILY RF: 0 alfuzosin 10 MG tablet 10 mg PO BID RF: 0 selenium sulfide-menthol 118 ML suspension 118 ml TP QODAY RF: 0 polyethylene glycol 3350 [Miralax] 17 gram Powder In Packet 17 g PO DAILY RF: 0 acetaminophen 500 mg Tablet 1,000 mg PO Q8 PRN (Reason: pain) 14 Days Qty: 90 RF: 0 atorvastatin 20 mg tablet 20 mg PO DAILY RF: 0 Systane (propylene glycol) 0.4-0.3 % Drops 1 drp EACH EYE DAILY PRN (Reason: Dry Eye(S)) RF: 0 Discontinued triamterene-hydrochlorothiazid 1 CAP capsule 1 cap PO DAILY RF: 0 potassium chloride 8 mEq Capsule, Extended Release 8 meq PO BID RF: 0 Referrals / Follow Up: Bertin Ragland MD [Primary Care Provider] - Within 2 Weeks Disposition Disposition (needs filled in before D/C Order can be placed): Home, Self Care Charges/Coding Visit Charges Inpatient E&M: 03214 Disch Hosp
== END 2020-11-17 16:50 | disposition home or self-care (01) | DRG 603 ==
LOC: ED 14:32 → MS3 17:27
PROVIDERS: Admitting Provider Student in an Organized Health Care Education/Training Program; Emergency Provider Student in an Organized Health Care Education/Training Program; PCP Internal Medicine; Visit Provider Internal Medicine
DX: L03.114 Cellulitis of left upper limb (principal); S51.852A Open bite of left forearm, initial encounter; W54.0XXA Bitten by dog, initial encounter; N40.0 Benign prostatic hyperplasia without lower urinary tract symptoms; K21.9 Gastro-esophageal reflux disease without esophagitis; M19.90 Unspecified osteoarthritis, unspecified site; E78.5 Hyperlipidemia, unspecified; E87.6 Hypokalemia; I10 Essential (primary) hypertension; Z79.899 Other long term (current) drug therapy; H40.9 Unspecified glaucoma
CPT/HCPCS: 36415; 73090; 80048; 80053; 85025; 85652; 86140; 87070; 87077; 87205; 87426; 97802; 99283; J7030; J7050; A4216; J0295

== ENCOUNTER → 2022-03-27 | Outpatient (CLI) | payer MEDICARE, SELFPAY ==
--- NOTE | 2022-03-27 13:00 | ECHOD_ITS ---
Reason For Study: Arrhythmia Procedure This was a 2D Doppler, Color Flow transthoracic echocardiogram. The study was technically difficult. Exam performed in department. Left Ventricle Normal LV size. Left ventricular systolic function is normal. The estimated ejection fraction is 55 %. No evidence for diastolic dysfunction. No regional wall motion abnormalities noted. Right Ventricle Normal RV size. Normal systolic function. Atria The left atrium is mildly enlarged. Normal right atrium. No doppler evidence for ASD. Mitral Valve There is no mitral annular calcification. Normal mitral valve. Mild (1+) eccentric mitral valve insufficiency. Tricuspid Valve Normal tricuspid valve. Trivial tricuspid valve insufficiency. Unable to estimate RV systolic pressure/pulmonary artery pressure due to technically difficult study. Aortic Valve Trisinus/trileaflet aortic valve. Mild diffuse aortic valve thickening. Pulmonic Valve The pulmonic valve is not well visualized. Trivial pulmonic valve insufficiency. Great Vessels Normal sized aortic root. Pericardium/Pleural No pericardial effusion. MMode/2D Measurements & Calculations LVIDd: 5.8 cm IVSd: 1.2 cm Ao root diam: 3.4 cm LVIDs: 4.0 cm LVPWd: 1.1 cm LA dimension: 4.7 cm RVDd: 4.0 cm FS: 32.1 % LAV(MOD-bp): 70.1 ml LA A4 area: 22.6 cm2 RA A4 area: 19.5 cm2 LAV(MOD-bp) Indexed: 31.6 ml/m2 LAV(MOD-sp2): 66.4 ml LAV(MOD-sp4): 67.7 ml Time Measurements MV dec time: 0.29 sec Doppler Measurements & Calculations MV E max oleksandr: 60.9 cm/sec Lat Peak E' Oleksandr: 7.8 cm/sec Med Peak E' Oleksandr: 7.1 cm/sec MV A max oleksandr: 114.7 cm/sec E/E' lat: 7.8 E/E' med: 8.6 MV E/A: 0.53 MV V2 max: 111.0 cm/sec Ao V2 max: 118.3 cm/sec LV V1 max: 101.3 cm/sec MV max P.9 mmHg Ao max P.6 mmHg LV V1 max P.1 mmHg MV V2 mean: 49.9 cm/sec Ao V2 mean: 87.5 cm/sec LV V1 mean P.6 mmHg MV mean P.2 mmHg Ao mean P.4 mmHg LV V1 mean: 76.4 cm/sec MV V2 VTI: 32.0 cm Ao V2 VTI: 26.7 cm LV V1 VTI: 22.5 cm AV (velocity ratio): 0.84 PA V2 max: 84.2 cm/sec PA V2 mean: 60.3 cm/sec ECHO/Echo Complete Interpretation Summary The study was technically difficult. Left ventricular systolic function is normal. The estimated ejection fraction is 55 %. The left atrium is mildly enlarged. Mild (1+) eccentric mitral valve insufficiency. Trivial tricuspid valve insufficiency. Mild diffuse aortic valve thickening. Trivial pulmonic valve insufficiency. No evidence for diastolic dysfunction. Ordering Physician: John Mcdaniels Referring Physician: Bertin Ragland M.D. Performed By: Imsael Durand RCS
== END | disposition home or self-care (01) ==
LOC: CVS 12:42
PROVIDERS: PCP Internal Medicine; Referring Provider Internal Medicine Cardiovascular Disease; Visit Provider Internal Medicine Cardiovascular Disease
DX: I49.3 Ventricular premature depolarization (principal); R06.09 Other forms of dyspnea; I10 Essential (primary) hypertension; E78.2 Mixed hyperlipidemia
CPT/HCPCS: 93225; 93226; 93306

== ENCOUNTER 2022-03-30 13:57 | Outpatient (CLI) | payer MEDICARE, SELFPAY ==
--- NOTE | 2022-03-30 15:19 | RAD_ITS ---
EXAM: XR CHEST, 2 VIEWS CLINICAL INDICATION: vt TECHNIQUE: Frontal and lateral views of the chest. This report was created using [employer] report generation technology. COMPARISON: 08/19/2020 FINDINGS: LUNGS AND PLEURAL SPACES: Unremarkable. No consolidation or edema. No pneumothorax. No effusion. HEART: Unremarkable. Cardiac silhouette not enlarged. MEDIASTINUM: Central airways and mediastinal contour are unremarkable. BONES/JOINTS: Unremarkable. SOFT TISSUES: Unremarkable. RAD/Chest PA and Lateral IMPRESSION: No radiographic evidence of acute cardiopulmonary disease. Electronically Signed: Raheem Dia MD at 23:20 EST ,
[2022-03-30 16:11] LABS: Absolute Lymphocyte Count 1.17 X10^3/uL (0.83-4.51); Absolute Neutrophil Count 2.6 X10^3/uL (2.0-7.7); Basophil# 0.04 X10^3/uL; Basophil% 0.9 % (0-1); Eosinophil# 0.14 X10^3/uL; Eosinophils% 3.1 % (0-5); Hematocrit 43.2 % (40-54); Hemoglobin 14.7 g/dL (13.0-16.5); Lymphocyte # 1.17 X10^3/ul (0.83-4.51); Lymphocyte % 26.2 % (19-41); Mean Corpuscular Hgb 30.8 pg (27.0-32.0); Mean Corpuscular Volume 90.6 fL (80-94); Mean Platelet Vol. 10.2 fl (6.2-12.0); Monocyte# 0.47 X10^3/uL; Monocyte% 10.5 % (0-10); NRBC Flagged by Analyzer 0 % (0-5); Neutrophil # 2.64 X10^3/uL (2.7-7.7); Neutrophil % 59.1 % (47-70); Platelet Count 164 K/mm3 (150-450); RBC Distribution Width CV 12.7 % (11.6-14.6); RBC Distribution Width SD 41.9 fl (35.1-43.9); Red Blood Count 4.77 M/mm3 (4.6-6.2); White Blood Count 4.5 K/mm3 (4.4-11.0)
[2022-03-30 16:29] LABS: International Normalized Ratio 1.1; Prothrombin Time (Protime)PT. 14.3 SECONDS (11.7-14.9)
[2022-03-30 16:30] LABS: Partial Thromboplast Time 32.2 Seconds (24.1-36.2)
[2022-03-30 16:33] LABS: Anion Gap 5 (5-15); BUN 15 mg/dL (7-18); BUN/Creat Ratio 17.3 RATIO (10-20); Calcium,Total 8.6 mg/dL (8.5-10.1); Chloride 103 mmol/L (98-107); Creatinine, Serum 0.86 mg/dL (0.70-1.30); EST Glomerular Filtration Rate 89 mL/min (>60); Est Glom Filt Rate - Afr Amer 108 mL/min (>60); Glucose 97 mg/dL (74-106); Magnesium 1.9 mg/dL (1.6-2.6); Potassium 3.5 mmol/L (3.5-5.1); Sodium Level 141 mmol/L (136-145)
== END 2022-03-30 23:59 | disposition home or self-care (01) ==
LOC: PAT 04-09 13:57
PROVIDERS: PCP Internal Medicine; Visit Provider Internal Medicine Cardiovascular Disease
DX: I47.29 Other ventricular tachycardia (principal); R06.09 Other forms of dyspnea; I49.3 Ventricular premature depolarization; R06.02 Shortness of breath
CPT/HCPCS: 36415; 71046; 80048; 83735; 85025; 85610; 85730